=== PATIENT | male | born 1975 | race Caucasian/White ===

== ENCOUNTER 2016-05-16 22:34 | Emergency (ER) | payer SELFPAY ==
[~2016-05-16] VITALS: Ht 162.6 cm; Wt 57.9 kg
[~2016-05-16 22:34] MED LIST: BACT800T5 PO; CEPH-460 PO
[2016-05-16 22:47] VITALS: BP 124/88; PULSE 97; RESP 22; TEMP 98.7; O2SAT 95
[2016-05-17 00:02] VITALS: BP 142/78; PULSE 88; RESP 18; TEMP 97.9; O2SAT 99
[2016-05-17] MEDS ORDERED: LIDOCAINE 1%/EPINEPHrine 1:100,000 SOLN 20 ML VIAL INFIL ONE (00:15)
[2016-05-17] MEDS ORDERED: BACT800T5 PO (00:19)
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
[2016-05-17 00:58] VITALS: BP 152/95
== END 2016-05-17 01:00 | disposition home or self-care (01) ==
LOC: PHED 22:34
DX: L02.413 Cutaneous abscess of right upper limb (principal)
CPT/HCPCS: 10061

== ENCOUNTER 2016-07-05 10:42 | Emergency (ER) | payer OTHER ==
[~2016-07-05] VITALS: Ht 162.6 cm; Wt 59.1 kg
[~2016-07-05 10:42] MED LIST changes: -CEPH-460 PO
[2016-07-05 10:56] VITALS: BP 142/99; PULSE 82; RESP 17; TEMP 98.3; O2SAT 99
[2016-07-05] MEDS ORDERED: MOTR200T4 PO (11:13)
[2016-07-05] MEDS ORDERED: ORPHENADRINE INJ 60 MG/2 ML AMP IM ONE (11:30)
[2016-07-05] MEDS ORDERED: KETOROLAC TROMETHAMINE 60 MG/2 ML (IM) VIAL IM ONE (11:30)
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
[2016-07-05] MEDS ORDERED: DICL75TA PO (12:39)
[2016-07-05] MEDS ORDERED: ROBA750T PO (12:39)
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
== END 2016-07-05 14:43 | disposition home or self-care (01) ==
LOC: PHEFT 10:42
DX: T14.8 Other injury of unspecified body region (principal); N20.0 Calculus of kidney; F17.210 Nicotine dependence, cigarettes, uncomplicated; F11.10 Opioid abuse, uncomplicated; V49.50XA Passenger injured in collision with unspecified motor vehicles in traffic accident, initial encounter; Y93.9 Activity, unspecified; Y92.9 Unspecified place or not applicable; Y99.9 Unspecified external cause status
CPT/HCPCS: 70450; 72125; 72128; 96372; 99283; J1885; J2360

== ENCOUNTER 2016-07-07 21:30 | Emergency (ER) | payer SELFPAY ==
[~2016-07-07] VITALS: Ht 162.6 cm; Wt 61.5 kg
[~2016-07-07 21:30] MED LIST changes: -BACT800T5 PO; +DICL75TA PO; +MOTR200T4 PO; +ROBA750T PO
[2016-07-07 21:34] VITALS: BP 108/80; PULSE 99; RESP 16; TEMP 98.2; O2SAT 100
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
[2016-07-07] MEDS ORDERED: predniSONE 20 MG TAB PO ONE (22:00)
[2016-07-07] MEDS ORDERED: GABA100C4 PO (22:06)
[2016-07-07] MEDS ORDERED: MAXI5O EACH EYE (22:06)
[2016-07-07] MEDS ORDERED: PRED20 PO (22:06)
== END 2016-07-07 22:35 | disposition home or self-care (01) ==
LOC: PHEFT 21:30
DX: R20.2 Paresthesia of skin (principal); T15.02XA Foreign body in cornea, left eye, initial encounter; X58.XXXA Exposure to other specified factors, initial encounter; Y93.89 Activity, other specified; Y92.89 Other specified places as the place of occurrence of the external cause; Y99.8 Other external cause status; V89.2XXD Person injured in unspecified motor-vehicle accident, traffic, subsequent encounter
CPT/HCPCS: 65205; 99283; J7512

== ENCOUNTER 2016-10-09 20:57 | Inpatient (IN) | payer SELFPAY ==
[~2016-10-09] VITALS: Ht 162.6 cm; Wt 58.5 kg
[~2016-10-09 20:57] MED LIST changes: -DICL75TA PO; +GABA100C4 PO; +MAXI5O EACH EYE; +PRED20 PO
[2016-10-09 21:03] VITALS: BP 120/74; PULSE 81; RESP 16; TEMP 99.8; O2SAT 97
[2016-10-09] MEDS ORDERED: SODIUM CHLOR 0.9% 1000 ML INJ 1,000 ML IV SCH (21:13)
[2016-10-09] MEDS ORDERED: SODIUM CHLORIDE 0.9% FLUSH 10 ML FLUSH IV FLUSH PRN ×2 (21:15→23:00)
[2016-10-09] MEDS ORDERED: MORPHINE SULFATE 4 MG/ML INJ IV PUSH ONE (21:15)
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
[2016-10-09 21:35] LABS: BLOOD, URINE SMALL (NEG); GLUCOSE,URINE NEG (NEG); KETONE, URINE NEG (NEG); NITRITE,URINE NEG (NEG)
[2016-10-09 21:35] LABS: AUTOMATED NEUTROPHIL # 8.8 TH/MM3 (1.8-7.7); BASOPHIL # 0.1 TH/MM3 (0-0.2); BASOPHIL % 0.9 % (0.0-2.0); EOSINOPHIL # 0.6 TH/MM3 (0-0.4); EOSINOPHIL % 4.6 % (0.0-4.0); HEMATOCRIT 35.3 % (39.0-51.0); HEMO FLAGS DIFF FINAL; LYMPH % 14.9 % (9.0-44.0); LYMPHOCYTE # 1.8 TH/MM3 (1.0-4.8); MEAN CELL VOLUME 83.3 FL (80.0-100.0); MEAN CORPUSCULAR HEMOGLOBIN 28.6 PG (27.0-34.0); MEAN CORPUSCULAR HGB CONC 34.3 % (32.0-36.0); MONO % 8.4 % (0.0-8.0); NEUT % 71.2 % (16.0-70.0); PLATELET COUNT 236 TH/MM3 (150-450); RED BLOOD COUNT 4.24 MIL/MM3 (4.50-5.90); RED CELL DISTRIBUTION WIDTH 13.1 % (11.6-17.2); WHITE BLOOD COUNT 12.3 TH/MM3 (4.0-11.0)
[2016-10-09 21:41] LABS: MUCUS URINE FEW /lpf (OCC); URINE COLOR YELLOW (YELLW/STRAW)
[2016-10-09 21:42] LABS: SQUAMOUS EPITHELIAL CELL URINE 0-5 /hpf (0-5); WBC, URINE 100-200 /hpf (0-5)
[2016-10-09 21:42] LABS: CHLORIDE 96 MEQ/L (98-107); POTASSIUM 3.8 MEQ/L (3.5-5.1); SODIUM (NA) 128 MEQ/L (136-145)
[2016-10-09 21:43] LABS: COMMENT (UR) CULTURE INDICATED; CULTURE IF INDICATED CULTURE INDICATED
[2016-10-09 21:46] LABS: ANION GAP 6 MEQ/L (5-15); BICARBONATE 26.1 MEQ/L (21.0-32.0); BLOOD UREA NITROGEN 20 MG/DL (7-18)
[2016-10-09 21:49] LABS: ALT (GPT) 29 U/L (12-78); AST (GOT) 25 U/L (15-37); GLOMERULAR FILTRATION RATE 42 ML/MIN (>89)
[2016-10-09 21:50] LABS: TOTAL BILIRUBIN ADULT 0.3 MG/DL (0.2-1.0)
[2016-10-09 21:52] LABS: ALKALINE PHOSPHATASE 80 U/L (45-117)
[2016-10-09] MEDS ORDERED: LEVOFLOXACIN 750 MG PREMIX INJ 150 ML IV ONE (22:00)
[2016-10-09 22:06] VITALS: BP 131/69; PULSE 80; O2SAT 98
--- NOTE | 2016-10-09 22:06 | RADRPT ---
EXAM DATE/TIME: 10/09/2016 21:20 [place] COMPARISON: No previous studies available for comparison. INDICATIONS : Left flank pain for 4 days. Prior history of renal calculi ORAL CONTRAST: No oral contrast ingested. RADIATION DOSE: 5.34 CTDIvol (mGy) MEDICAL HISTORY : Renal calculi. urinary tract infection SURGICAL HISTORY : None. ENCOUNTER: Initial ACUITY: 4 - 6 days PAIN SCALE: 8/10 LOCATION: Left flank TECHNIQUE: Renal colic protocol. Volumetric scanning of the abdomen and pelvis was performed. Using automated exposure control and adjustment of the mA and/or kV according to patient size, radiation dose was kep t as low as reasonably achievable to obtain optimal diagnostic quality images. DICOM format image da ta is available electronically for review and comparison. FINDINGS: Right side: There is a large calcified stone in the upper renal pelvis measuring 12 mm and prominent hydronephros is of the upper pole collecting system, severe. No calcified stones in the lower pole. There is a 2 nd 4 mm calcification layering in the posterior midpole collecting system. The extra renal pelvis is not dilated. Left side: Moderate hydronephrosis and dilation of the right ureter down to the proximal one third where there i s a 13 mm calcified obstructing stone. There is a lower pole amorphous calcified stone measuring 1.5 cm and a 2nd calcification in the lower lateral collecting system measuring 4 mm. Bladder: Nondistended. No calcifications within the lumen. Other: Paucity of abdominal and retroperitoneal fat. No definite dilated loops of bowel. No evidence of fr ee fluid. The visualized lower lungs are clear. Osseous structures are grossly intact. Moderate ca lcification in the central zone of the prostate. CONCLUSION: 1. Moderately severe left-sided hydronephrosis due to a 13 mm obstructing stone in the proximal left ureter. There are 2 other calcified stones in the lower pole of left kidney. 2. Large stone at the junction of the renal pelvis and upper pole renal pelvis on the right side graham uring 13 mm causing segmental obstruction to the upper pole collecting system. There are additional nonobstructing stones in the posterior midpole. Kishore Hendreson MD on October 09, 2016 at 21:59 Board Certified Radiologist. This report was verified electronically.
[2016-10-09] MEDS ORDERED: MORPHINE SULFATE 8 MG/ML INJ IV PUSH ONE (22:30)
[2016-10-09] MEDS ORDERED: ACETAMINOPHEN 325 MG TAB PO PRN (23:00)
[2016-10-09] MEDS ORDERED: ONDANSETRON HCL 4 MG/2 ML VIAL IVP PRN (23:00)
[2016-10-09] MEDS ORDERED: BISACODYL 10 MG SUPP RECTAL PRN (23:00)
[2016-10-09] MEDS ORDERED: SENNOSIDES 8.6 MG TAB PO PRN (23:00)
[2016-10-09] MEDS ORDERED: LACTULOSE SYRUP 20 GM/30 ML CUP PO PRN (23:00)
[2016-10-09] MEDS ORDERED: MAGNESIUM HYDROXIDE SUSP 30 ML CUP PO PRN (23:00)
[2016-10-09 23:06] VITALS: PULSE 81; TEMP 99.8; O2SAT 98
[2016-10-09] MEDS: SODIUM CHLOR 0.9% 1000 ML INJ 1,000 ML IV SCH (23:19)
[2016-10-10 01:20] VITALS: BP 131/81; PULSE 72; RESP 17; TEMP 98.3; O2SAT 95
[2016-10-10] MEDS: MORPHINE SULFATE 4 MG/ML INJ IV PRN ×5 (02:00→21:01)
[2016-10-10 06:19] LABS: AUTOMATED NEUTROPHIL # 8.4 TH/MM3 (1.8-7.7); BASOPHIL # 0.1 TH/MM3 (0-0.2); BASOPHIL % 0.9 % (0.0-2.0); EOSINOPHIL # 0.7 TH/MM3 (0-0.4); EOSINOPHIL % 5.3 % (0.0-4.0); HEMATOCRIT 34.5 % (39.0-51.0); HEMO FLAGS DIFF FINAL; LYMPH % 14.5 % (9.0-44.0); LYMPHOCYTE # 1.8 TH/MM3 (1.0-4.8); MEAN CORPUSCULAR HEMOGLOBIN 28.7 PG (27.0-34.0); MEAN CORPUSCULAR HGB CONC 34.2 % (32.0-36.0); MONO % 12.4 % (0.0-8.0); NEUT % 66.9 % (16.0-70.0); PLATELET COUNT 233 TH/MM3 (150-450); RED BLOOD COUNT 4.11 MIL/MM3 (4.50-5.90); RED CELL DISTRIBUTION WIDTH 13.7 % (11.6-17.2); WHITE BLOOD COUNT 12.6 TH/MM3 (4.0-11.0)
[2016-10-10 06:34] LABS: ANION GAP 9 MEQ/L (5-15); AST (GOT) 21 U/L (15-37); BICARBONATE 22.8 MEQ/L (21.0-32.0); BLOOD UREA NITROGEN 18 MG/DL (7-18); CHLORIDE 101 MEQ/L (98-107); GLOMERULAR FILTRATION RATE 47 ML/MIN (>89); POTASSIUM 3.9 MEQ/L (3.5-5.1); SODIUM (NA) 133 MEQ/L (136-145)
[2016-10-10 06:36] LABS: ALKALINE PHOSPHATASE 68 U/L (45-117); ALT (GPT) 26 U/L (12-78); TOTAL BILIRUBIN ADULT 0.4 MG/DL (0.2-1.0)
[2016-10-10 08:00] VITALS: BP 121/83; PULSE 60; RESP 17; TEMP 97.8; O2SAT 96
[2016-10-10] MEDS: SODIUM CHLOR 0.9% 1000 ML INJ 1,000 ML IV SCH ×2 (08:21→16:58)
[2016-10-10] MEDS: DOCUSATE SODIUM 50 MG/SENNA 8.6 MG TAB PO SCH ×2 (08:21→21:00)
[2016-10-10] MEDS: cefTRIAXone INJ 1,000 MG in SODIUM CHLORIDE 0.9% INJ 100 ML IV SCH (08:21)
[2016-10-10] MEDS: SODIUM CHLORIDE 0.9% FLUSH 10 ML FLUSH IV FLUSH SCH ×2 (08:21→21:04)
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
[2016-10-10] MEDS: REMOVE OLD PATCH T-DERMAL SCH (09:00)
[2016-10-10 12:00] VITALS: BP 117/74; PULSE 53; RESP 17; TEMP 97.6; O2SAT 97
[2016-10-10] MEDS: NICOTINE 21 MG/24 HR PATCH T-DERMAL SCH (12:20)
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
[2016-10-10 16:00] VITALS: BP 126/86; PULSE 75; RESP 18; TEMP 96.1; O2SAT 97
[2016-10-10 20:00] VITALS: BP 135/89; PULSE 73; RESP 18; TEMP 99.7; O2SAT 96
[2016-10-11] VITALS: BP 134/84; PULSE 68; RESP 18; TEMP 98.9; O2SAT 95
[2016-10-11] MEDS: MORPHINE SULFATE 4 MG/ML INJ IV PRN ×4 (00:14→12:29)
[2016-10-11] MEDS ORDERED: diphenhydrAMINE HCL 25 MG CAP PO ONE ×2 (00:30→23:30)
[2016-10-11] MEDS: SODIUM CHLOR 0.9% 1000 ML INJ 1,000 ML IV SCH ×3 (04:51→19:43)
[2016-10-11 08:00] VITALS: BP 135/92; PULSE 59; RESP 17; TEMP 96.6; O2SAT 95
[2016-10-11] MEDS: REMOVE OLD PATCH T-DERMAL SCH (08:50)
[2016-10-11] MEDS: DOCUSATE SODIUM 50 MG/SENNA 8.6 MG TAB PO SCH ×2 (08:50→19:42)
[2016-10-11] MEDS: cefTRIAXone INJ 1,000 MG in SODIUM CHLORIDE 0.9% INJ 100 ML IV SCH (08:50)
[2016-10-11] MEDS: NICOTINE 21 MG/24 HR PATCH T-DERMAL SCH (08:50)
[2016-10-11] MEDS: SODIUM CHLORIDE 0.9% FLUSH 10 ML FLUSH IV FLUSH SCH ×2 (08:50→19:42)
[2016-10-11 12:00] VITALS: BP 128/82; PULSE 69; RESP 18; TEMP 97.1; O2SAT 96
--- NOTE | 2016-10-11 14:08 | HHI.PR ---
Subjective Remarks Follow-up for flank pain Flank pain is still about the same, no change, no fever or chills. No hematuria. Objective Vitals Vital Signs Date Time Temp Pulse Resp B/P Pulse Ox O2 Delivery O2 Flow Rate FiO2 10/11/16 12:00 97.1 69 18 128/82 96 10/11/16 08:00 96.6 59 17 135/92 95 10/11/16 00:00 98.9 68 18 134/84 95 10/10/16 20:00 99.7 73 18 135/89 96 10/10/16 16:00 96.1 75 18 126/86 97 I/O 10/10/16 10/10/16 10/10/16 10/11/16 10/11/16 10/11/16 07:00 15:00 23:00 07:00 15:00 23:00 Intake Total 572 ml 1173 ml 1228 ml 480 ml 903 ml Output Total 675 ml 1425 ml 1250 ml Balance 572 ml 498 ml -197 ml -770 ml 903 ml Intake Oral 240 ml 475 ml 480 ml 480 ml IV Total 332 ml 698 ml 748 ml 903 ml Output Urine Total 675 ml 1425 ml 1250 ml # Voids 3 # Bowel Movements 0 0 0 Result Diagram: 10/10/16 0532 10/10/16 0532 Imaging Last Impressions Abdomen/Pelvis CT 10/09/162112 Signed Impressions: Service Date/Time: Sunday, October 09, 2016 21:20 - CONCLUSION: 1. Moderately severe left-sided hydronephrosis due to a 13 mm obstructing stone in the proximal left ureter. There are 2 other calcified stones in the lower pole of left kidney. 2. Large stone at the junction of the renal pelvis and upper pole renal pelvis on the right side measuring 13 mm causing segmental obstruction to the upper pole collecting system. There are additional nonobstructing stones in the posterior midpole. Kishore Henderson MD Objective Remarks Not in distress Normal rate and regular rhythm, no murmurs gallops or rubs appreciated. Clear to auscultation and symmetric bilaterally, normal respiratory effort. Normal bowel sounds, soft, mild tenderness on palpation of the left lower quadrant, positive for left CVA tenderness. Extremities without clubbing, cyanosis, or edema. AAO x3, no cranial nerve deficits, moves all 4 extremities, no focal neurologic deficits A/P Problem List: (1) Leukocytosis ICD Code: D72.829 Status: Acute (2) Polysubstance abuse ICD Code: F19.10 Status: Acute (3) IVDU (intravenous drug user) ICD Code: F19.90 Status: Acute (4) Febrile illness ICD Code: R50.9 Status: Acute (5) IV drug user ICD Code: F19.90 Status: Acute (6) Hydronephrosis ICD Code: N13.30 Status: Acute (7) Kidney stone on left side ICD Code: N20.0 Status: Acute (8) Renal insufficiency ICD Code: N28.9 Status: Acute (9) Pyelonephritis ICD Code: N12 Status: Acute Assessment and Plan This is a 41-year-old male presenting with left flank pain Pyelonephritis -CT scan of the abdomen showed left-sided hydronephrosis with obstructing stone on the left ureter and lower pole of the left kidney. There is also stone on the right renal pelvis. Urology consulted, for bilateral nephrostomy tube placement tomorrow, and then may discharge if medically stable per urology to follow-up as outpatient. Follow-up urine culture, continue ceftriaxone. Urine culture no growth. Would recheck urinalysis after nephrostomy placement. Continue IVF, recheck CBC Polysubstance abuse-counseled, long-acting morphine only, no IV morphine. Acute renal failure-improving, continue IVF, recheck BMP tomorrow SCDs for DVT prophylaxis: Low risk. Discharge Planning Discharge after nephrostomy tube placement if urinalysis is clear and medically stable. Problem Qualifiers (1) Hydronephrosis: Qualified Code: N13.2 - Hydronephrosis with urinary obstruction due to ureteral calculus Ricki Rowland MD Oct 11, 2016 14:08
[2016-10-11 16:00] VITALS: BP 134/85; PULSE 73; RESP 17; TEMP 98.6; O2SAT 98
[2016-10-11] MEDS: MORPHINE SULFATE 15 MG CONTROLLED RELEASE TAB PO SCH (19:05)
[2016-10-11 19:11] LABS: AUTOMATED NEUTROPHIL # 9.8 TH/MM3 (1.8-7.7); BASOPHIL # 0.1 TH/MM3 (0-0.2); BASOPHIL % 1.1 % (0.0-2.0); EOSINOPHIL # 0.3 TH/MM3 (0-0.4); EOSINOPHIL % 2.6 % (0.0-4.0); HEMATOCRIT 39.7 % (39.0-51.0); HEMO FLAGS DIFF FINAL; LYMPH % 13.2 % (9.0-44.0); LYMPHOCYTE # 1.7 TH/MM3 (1.0-4.8); MEAN CELL VOLUME 84.4 FL (80.0-100.0); MEAN CORPUSCULAR HGB CONC 34.4 % (32.0-36.0); MONO % 8.2 % (0.0-8.0); NEUT % 74.9 % (16.0-70.0); PLATELET COUNT 277 TH/MM3 (150-450); RED BLOOD COUNT 4.71 MIL/MM3 (4.50-5.90); RED CELL DISTRIBUTION WIDTH 13.9 % (11.6-17.2); WHITE BLOOD COUNT 13.1 TH/MM3 (4.0-11.0)
[2016-10-11 19:41] LABS: ANION GAP 9 MEQ/L (5-15); AST (GOT) 35 U/L (15-37); BICARBONATE 24.8 MEQ/L (21.0-32.0); BLOOD UREA NITROGEN 17 MG/DL (7-18); CHLORIDE 101 MEQ/L (98-107); GLOMERULAR FILTRATION RATE 53 ML/MIN (>89); MAGNESIUM 2.2 MG/DL (1.5-2.5); POTASSIUM 4.1 MEQ/L (3.5-5.1); SODIUM (NA) 135 MEQ/L (136-145)
[2016-10-11 19:42] LABS: ALT (GPT) 34 U/L (12-78)
[2016-10-11 19:51] LABS: ALKALINE PHOSPHATASE 134 U/L (45-117); FREE T4 1.24 NG/DL (0.76-1.46); TOTAL BILIRUBIN ADULT 0.2 MG/DL (0.2-1.0)
[2016-10-11 20:00] VITALS: BP 138/89; PULSE 74; RESP 18; TEMP 99.2; O2SAT 96
[2016-10-12] VITALS (8 sets, daily range): BP systolic 112–136; BP diastolic 70–93; PULSE 57–82; RESP 16–20; TEMP 96.9–99.3; O2SAT 95–100
[2016-10-12] MEDS ORDERED: MORPHINE SULFATE 4 MG/ML INJ IV PUSH ONE (01:00)
[2016-10-12] MEDS: MORPHINE SULFATE 15 MG CONTROLLED RELEASE TAB PO SCH ×2 (05:39→17:04)
[2016-10-12] MEDS: SODIUM CHLOR 0.9% 1000 ML INJ 1,000 ML IV SCH ×3 (06:39→22:39)
[2016-10-12 07:19] LABS: AUTOMATED NEUTROPHIL # 9.6 TH/MM3 (1.8-7.7); BASOPHIL # 0.2 TH/MM3 (0-0.2); BASOPHIL % 1.2 % (0.0-2.0); EOSINOPHIL # 0.6 TH/MM3 (0-0.4); EOSINOPHIL % 4.3 % (0.0-4.0); HEMATOCRIT 36.1 % (39.0-51.0); HEMO FLAGS DIFF FINAL; LYMPH % 13.9 % (9.0-44.0); LYMPHOCYTE # 1.9 TH/MM3 (1.0-4.8); MEAN CELL VOLUME 84.3 FL (80.0-100.0); MEAN CORPUSCULAR HEMOGLOBIN 28.9 PG (27.0-34.0); MEAN CORPUSCULAR HGB CONC 34.4 % (32.0-36.0); NEUT % 70.6 % (16.0-70.0); PLATELET COUNT 282 TH/MM3 (150-450); RED BLOOD COUNT 4.29 MIL/MM3 (4.50-5.90); RED CELL DISTRIBUTION WIDTH 13.4 % (11.6-17.2); WHITE BLOOD COUNT 13.6 TH/MM3 (4.0-11.0)
[2016-10-12 07:54] LABS: BICARBONATE 22.6 MEQ/L (21.0-32.0); POTASSIUM 4.1 MEQ/L (3.5-5.1)
[2016-10-12] MEDS: DOCUSATE SODIUM 50 MG/SENNA 8.6 MG TAB PO SCH ×2 (08:32→21:30)
[2016-10-12] MEDS: cefTRIAXone INJ 1,000 MG in SODIUM CHLORIDE 0.9% INJ 100 ML IV SCH (08:32)
[2016-10-12] MEDS: NICOTINE 21 MG/24 HR PATCH T-DERMAL SCH (08:33)
[2016-10-12] MEDS: SODIUM CHLORIDE 0.9% FLUSH 10 ML FLUSH IV FLUSH SCH ×2 (08:33→21:00)
[2016-10-12] MEDS: REMOVE OLD PATCH T-DERMAL SCH (08:33)
[2016-10-12 12:35] LABS: APTT (PATIENT) 33.4 SEC (24.3-30.1); PROTHROMBIN TIME - PATIENT 11.3 SEC (9.8-11.6)
[2016-10-12] MEDS ORDERED: fentaNYL CITRATE 250 MCG/5 ML AMP ONE (14:07)
[2016-10-12] MEDS ORDERED: MIDAZOLAM HCL 2 MG/2 ML VIAL ONE ×2 (14:07→14:50)
--- NOTE | 2016-10-12 14:08 | HHI.PR ---
Subjective Remarks Follow up for left sided flank pain. Mr. Muñoz is on his way to IR for bilateral nephrostomy tube placement. No fever, chills. Objective Vitals Vital Signs Date Time Temp Pulse Resp B/P Pulse Ox O2 Delivery O2 Flow Rate FiO2 10/12/16 11:48 96.9 60 20 129/81 97 10/12/16 08:00 98.0 67 20 125/88 98 10/12/16 05:40 20 10/12/16 04:00 98.5 71 18 131/76 95 10/12/16 01:44 20 10/12/16 00:00 99.3 71 20 136/93 96 10/11/16 20:00 99.2 74 18 138/89 96 10/11/16 16:00 98.6 73 17 134/85 98 I/O 10/11/16 10/11/16 10/11/16 10/12/16 10/12/16 10/12/16 06:59 14:59 22:59 06:59 14:59 22:59 Intake Total 480 ml 1403 ml 1914 ml 586 ml 0 ml Output Total 1250 ml 735 ml 1100 ml 1750 ml 400 ml Balance -770 ml 668 ml 814 ml -1164 ml -400 ml Intake Oral 480 ml 500 ml 480 ml 0 ml 0 ml IV Total 903 ml 1434 ml 586 ml Output Urine Total 1250 ml 735 ml 1100 ml 1750 ml 400 ml # Bowel Movements 0 1 0 0 0 Result Diagram: 10/12/16 0556 10/12/16 0536 Imaging Last Impressions Abdomen/Pelvis CT 10/09/162112 Signed Impressions: Service Date/Time: Sunday, October 09, 2016 21:20 - CONCLUSION: 1. Moderately severe left-sided hydronephrosis due to a 13 mm obstructing stone in the proximal left ureter. There are 2 other calcified stones in the lower pole of left kidney. 2. Large stone at the junction of the renal pelvis and upper pole renal pelvis on the right side measuring 13 mm causing segmental obstruction to the upper pole collecting system. There are additional nonobstructing stones in the posterior midpole. Kishore Henderson MD Objective Remarks GENERAL: AOX3, NAD. SKIN: Warm and dry. HEAD: Normocephalic. EYES: No scleral icterus. No injection or drainage. NECK: Supple, trachea midline. No JVD or lymphadenopathy. CARDIOVASCULAR: Regular rate and rhythm without murmurs, gallops, or rubs. RESPIRATORY: Breath sounds equal bilaterally. No accessory muscle use. GASTROINTESTINAL: Abdomen soft, non-tender, nondistended. Left CVA tenderness. MUSCULOSKELETAL: No cyanosis, or edema. BACK: Nontender without obvious deformity. Procedures Nephrostomy tube placement 10/12/2016. A/P Problem List: (1) Leukocytosis ICD Code: D72.829 Status: Acute (2) Polysubstance abuse ICD Code: F19.10 Status: Acute (3) IVDU (intravenous drug user) ICD Code: F19.90 Status: Acute (4) Febrile illness ICD Code: R50.9 Status: Acute (5) IV drug user ICD Code: F19.90 Status: Acute (6) Hydronephrosis ICD Code: N13.30 Status: Acute (7) Kidney stone on left side ICD Code: N20.0 Status: Acute (8) Renal insufficiency ICD Code: N28.9 Status: Acute (9) Pyelonephritis ICD Code: N12 Status: Acute Assessment and Plan 41yo male with history of IV drug abuse seen in consultation for bilateral nephrolithiasis and hydronephrosis. Patient presented to ED with bilateral flank pain. CT scan identified large 1.3cm left proximal ureteral stone resulting in left hydronephrosis as well as a large right 1.3 cm upper pole stone causing obstruction and hydronephrosis of the upper calyces. Urology evaluated patient and recommended bilateral nephrostomy tube placement by IR. - Bilateral obstructing nephrolithiasis - Moderately severe left sided hydronephrosis - Continue long acting morphine SR 15mg Q12hrs and PRN Oxycodone. - Continue Ceftriaxone 1g Q24hrs. - Continue NS @125cc/hour. - If patient tolerates diet well, we will discharge him home on 10/13/2016 with Urology follow up. - Acute kidney injury - Creatinine trending down. 1.80 --> 1.39. - IV Drug abuse - Tobacco abuse - Continue Nicotine patch. - Patient has been counselled on his IVDU. Full code. SCDs. Problem Qualifiers (1) Hydronephrosis: Qualified Code: N13.2 - Hydronephrosis with urinary obstruction due to ureteral calculus Otto Flores DO Oct 12, 2016 14:08
[2016-10-12] MEDS ORDERED: HYDROmorphone HCL PF 2 MG/ML VIAL ONE (14:50)
[2016-10-12] MEDS ORDERED: IOHEXOL 350 MG/ML 50 ML BTL (for RAD DIAG) ONE (16:00)
--- NOTE | 2016-10-12 17:09 | PD.RAD ---
Post Procedure Progress Note Pre Procedure Diagnosis: (1) Hydronephrosis Post Procedure Diagnosis: (1) Hydronephrosis (2) Kidney stone on left side (3) Leukocytosis Procedure Date: Oct 12, 2016 Supervising Radiologist: Jaswinder Gasca Proceduralist/Assist: Christi Haynes, RT(R), Mala Edouard, RT(R), Deb Rojas RT(R)() Anesthesia: Local, Analgesia, Conscious Sedation Plan of Activity Patient to Unit: [facility] Patient Condition: Good See PACS Report for procedural detail/treatment Drainage Procedure Procedure 1 Imaging Guidance: Fluoroscopy, Ultrasound Side: Bilateral Procedure Type: Nephrostomy Procedure: Placement Czech: 8 Fluid Description: Clear, Red Findings: Bilateral stones. Ureteric on left. Upper pole calyx on right with isolated hydro Jaswinder Gasca MD Oct 12, 2016 17:09
[2016-10-12 17:15] LABS: HEMOGLOBIN A1a 1.2 %; HEMOGLOBIN A1b 1.8 %; HEMOGLOBIN Ao 83.8 %; HEMOGLOBIN LA1C 2.1 %; HEMOGLOBIN P3 4.3 %
[2016-10-13] VITALS: BP 131/92; PULSE 85; RESP 17; TEMP 97.6; O2SAT 97
[2016-10-13] MEDS ORDERED: diphenhydrAMINE HCL 50 MG/ML VIAL IV PUSH ONE (01:00)
[2016-10-13] MEDS ORDERED: MORPHINE SULFATE 4 MG/ML INJ IV PUSH ONE (01:00)
[2016-10-13 04:00] VITALS: BP 128/79; PULSE 66; RESP 17; TEMP 97.6; O2SAT 97
[2016-10-13] MEDS: MORPHINE SULFATE 15 MG CONTROLLED RELEASE TAB PO SCH ×2 (05:12→17:44)
[2016-10-13 08:00] VITALS: BP 113/65; PULSE 79; RESP 20; TEMP 99.3; O2SAT 95
[2016-10-13] MEDS: SODIUM CHLORIDE 0.9% FLUSH 10 ML FLUSH IV FLUSH SCH ×2 (08:17→20:15)
[2016-10-13] MEDS: cefTRIAXone INJ 1,000 MG in SODIUM CHLORIDE 0.9% INJ 100 ML IV SCH (08:17)
[2016-10-13] MEDS: SODIUM CHLOR 0.9% 1000 ML INJ 1,000 ML IV SCH ×3 (08:17→20:16)
--- NOTE | 2016-10-13 08:17 | RADRPT ---
EXAM DATE/TIME: 10/12/2016 14:28 [facility] COMPARISON: No previous studies available for comparison. INDICATIONS : Patient is in need of placement of bilateral nephrostomy tubes due to hydronephrosis. MEDICAL HISTORY : History of bilateral renal calculi, pyelonephritis, renal insufficiency, seizures, asthma, IVDU. SURGICAL HISTORY : History of eye and facial surgery. ENCOUNTER: Initial ACUITY: 2 days PAIN SCORE: 8/10 LOCATION: Left flank FLUORO TIME: 8.4 minutes IMAGE SERIES: 0 SEDATION TIME: 60 minutes CONTRAST: 5 cc Omnipaque (iohexol) 350 MEDICATION(S): 1.) 6 midazolam (Versed) IV 2.) 250 fentanyl (Sublimaze) IV 3.) 2 hydromorphone (Dilaudid) IV DEVICE(S): 1.) 8 Croatian 25cm nephrostomy catheter Expel PROCEDURE : 1. Ultrasound-guided puncture of the kidney. 2. Antegrade percutaneous pyelogram. 3. Percutaneous nephrostomy placement. 4. Conscious sedation with continuous EKG and oximetry monitoring. The risks, benefits and alternatives to the procedure were explained and verbal and written consent w as obtained. The site was prepped in sterile fashion. Full sterile technique was used, including ca p, mask, sterile gloves and gown and a large sterile sheet. Hand hygiene and 2% chlorhexidine and/or betadine/alcohol prep was utilized per protocol for cutaneous antisepsis. The skin and subcutaneous tissues were infiltrated with local anesthetic solution. With ultrasound and fluoroscopic guidance the selected kidney was punctured and a percutaneous antegr mick pyelogram was performed demonstrating a dilated collecting system which seems to be isolated to t he upper pole calyces. CO2 was injected to delineate the dilated upper pole calyx and the system was accessed with an 18 gauge Velasquez blunt needle. Serial dilatation was performed and a prescribed nep hrostomy tube was placed within the renal pelvis and sutured in place. Conscious sedation was performed with the prescribed dosages and duration as above in the presence of an independent trained radiology nurse to assist in the monitoring of the patient. EKG and oximetry remained stable throughout the procedure. The patient tolerated the procedure well and there were n o complications. The patient was sent to post anesthesia recovery in stable condition. CONCLUSION: 1. Uncomplicated nephrostomy tube placement as above. 2. Pelvocaliectasis appears to be isolated to the upper pole calyceal system due to late regional inf undibular stone. Catheter was placed into the upper pole calyx. 3. We will left the patient drain for the next 48 hours. Can consider traversing the partially obstru cting stone at that time if clinically warranted. Jaswinder Gasca MD on October 13, 2016 at 8:13 Board Certified Radiologist. This report was verified electronically.
[2016-10-13] MEDS: DOCUSATE SODIUM 50 MG/SENNA 8.6 MG TAB PO SCH ×2 (08:18→20:15)
[2016-10-13] MEDS: REMOVE OLD PATCH T-DERMAL SCH (08:19)
[2016-10-13] MEDS: NICOTINE 21 MG/24 HR PATCH T-DERMAL SCH (08:19)
[2016-10-13 09:09] LABS: BACTERIA, URINE OCC /hpf; BLOOD, URINE MOD (NEG); COMMENT (UR) CULTURE INDICATED; CULTURE IF INDICATED CULTURE INDICATED; GLUCOSE,URINE NEG (NEG); KETONE, URINE NEG (NEG); NITRITE,URINE NEG (NEG); SQUAMOUS EPITHELIAL CELL URINE <1 /hpf (0-5); URINE COLOR YELLOW (YELLW/STRAW)
--- NOTE | 2016-10-13 09:36 | RADRPT ---
EXAM DATE/TIME: 10/12/2016 14:28 [facility] COMPARISON: No previous studies available for comparison. INDICATIONS : Patient is in need of placement of bilateral nephrostomy tubes due to hydronephrosis. MEDICAL HISTORY : History of bilateral renal calculi, pyelonephritis, renal insufficiency, seizures, asthma, IVDU. SURGICAL HISTORY : History of eye and facial surgery. ENCOUNTER: Initial ACUITY: 2 days PAIN SCORE: 8/10 LOCATION: Left flank FLUORO TIME: 8.4 minutes IMAGE SERIES: 0 SEDATION TIME: 60 minutes CONTRAST: 5 cc Omnipaque (iohexol) 350 MEDICATION(S): 1.) 6 mg midazolam (Versed) IV 2.) 250 mcg fentanyl (Sublimaze) IV 3.) 2 mg hydromorphone (Dilaudid) IV DEVICE(S): 1.) 8 Japanese 25cm nephrostomy catheter Expel PROCEDURE : 1. Ultrasound-guided puncture of the kidney. 2. Antegrade percutaneous pyelogram. 3. Percutaneous nephrostomy placement. 4. Conscious sedation with continuous EKG and oximetry monitoring. The risks, benefits and alternatives to the procedure were explained and verbal and written consent w as obtained. The site was prepped in sterile fashion. Full sterile technique was used, including ca p, mask, sterile gloves and gown and a large sterile sheet. Hand hygiene and 2% chlorhexidine and/or betadine/alcohol prep was utilized per protocol for cutaneous antisepsis. The skin and subcutaneous tissues were infiltrated with local anesthetic solution. With ultrasound and fluoroscopic guidance the selected kidney was punctured and a percutaneous antegr mick pyelogram was performed demonstrating a dilated collecting system. CO2 was injected to delineate an upper pole posterior calyx. This calyx was accessed with an 18 gauge Velasquez blunt needle under [facility] fluoroscopic guidance. Serial dilatation was performed and a prescribed nephrostomy tube was pl aced within the renal pelvis and sutured in place. Conscious sedation was performed with the prescribed dosages and duration as above in the presence of an independent trained radiology nurse to assist in the monitoring of the patient. EKG and oximetry remained stable throughout the procedure. The patient tolerated the procedure well and there were n o complications. The patient was sent to post anesthesia recovery in stable condition. CONCLUSION: Uncomplicated nephrostomy tube placement as above. We will let the patient drain for the next 48 hour s and can convert to a nephroureteral tube at that time if clinically warranted. Jaswinder Gasca MD on October 13, 2016 at 8:11 Board Certified Radiologist. This report was verified electronically.
[2016-10-13 12:00] VITALS: BP 129/83; PULSE 74; RESP 19; TEMP 98.2; O2SAT 97
--- NOTE | 2016-10-13 13:39 | HHI.PR ---
Subjective Remarks Follow up for left sided flank pain. Mr. Muñoz is doing well. No fever, chills. However, he complains of significant pain. He underwent bilateral nephrostomy tube placement on 10/12/2016 by IR. Objective Vitals Vital Signs Date Time Temp Pulse Resp B/P Pulse Ox O2 Delivery O2 Flow Rate FiO2 10/13/16 12:00 98.2 74 19 129/83 97 10/13/16 08:00 99.3 79 20 113/65 95 10/13/16 04:00 97.6 66 17 128/79 97 10/13/16 01:11 20 10/13/16 00:00 97.6 85 17 131/92 97 10/12/16 23:48 18 10/12/16 20:00 98.7 82 17 127/72 98 10/12/16 16:30 70 18 112/70 99 10/12/16 16:00 73 18 121/84 100 10/12/16 15:45 98.0 57 16 136/89 99 I/O 10/12/16 10/12/16 10/12/16 10/13/16 10/13/16 10/13/16 07:00 15:00 23:00 07:00 15:00 23:00 Intake Total 586 ml 656 ml 240 ml 785 ml 437 ml Output Total 1750 ml 400 ml 400 ml 1150 ml 1080 ml Balance -1164 ml 256 ml -160 ml -365 ml -643 ml Intake Oral 0 ml 0 ml 240 ml 240 ml 120 ml IV Total 586 ml 656 ml 545 ml 317 ml Output Urine Total 1750 ml 400 ml 500 ml 200 ml Drainage Total 400 ml 650 ml 880 ml # Voids 3 # Bowel Movements 0 0 3 Result Diagram: 10/12/16 0556 10/12/16 0536 Imaging Last Impressions Nephrostomy 10/12/16 0000 Signed Impressions: Service Date/Time: Wednesday, October 12, 2016 14:28 - CONCLUSION: Uncomplicated nephrostomy tube placement as above. We will let the patient drain for the next 48 hours and can convert to a nephroureteral tube at that time if clinically warranted. Jaswinder Gasca MD Abdomen/Pelvis CT 10/09/163 Signed Impressions: Service Date/Time: Sunday, October 09, 2016 21:20 - CONCLUSION: 1. Moderately severe left-sided hydronephrosis due to a 13 mm obstructing stone in the proximal left ureter. There are 2 other calcified stones in the lower pole of left kidney. 2. Large stone at the junction of the renal pelvis and upper pole renal pelvis on the right side measuring 13 mm causing segmental obstruction to the upper pole collecting system. There are additional nonobstructing stones in the posterior midpole. Kishore Henderson MD Objective Remarks GENERAL: AOX3, NAD. SKIN: Warm and dry. HEAD: Normocephalic. EYES: No scleral icterus. No injection or drainage. NECK: Supple, trachea midline. No JVD or lymphadenopathy. CARDIOVASCULAR: Regular rate and rhythm without murmurs, gallops, or rubs. RESPIRATORY: Breath sounds equal bilaterally. No accessory muscle use. GASTROINTESTINAL: Abdomen soft, non-tender, nondistended. Left CVA tenderness. MUSCULOSKELETAL: No cyanosis, or edema. BACK: Nontender without obvious deformity. Procedures Nephrostomy tube placement 10/12/2016. A/P Problem List: (1) Leukocytosis ICD Code: D72.829 Status: Acute (2) Polysubstance abuse ICD Code: F19.10 Status: Acute (3) IVDU (intravenous drug user) ICD Code: F19.90 Status: Acute (4) Febrile illness ICD Code: R50.9 Status: Acute (5) IV drug user ICD Code: F19.90 Status: Acute (6) Hydronephrosis ICD Code: N13.30 Status: Acute (7) Kidney stone on left side ICD Code: N20.0 Status: Acute (8) Renal insufficiency ICD Code: N28.9 Status: Acute (9) Pyelonephritis ICD Code: N12 Status: Acute Assessment and Plan 41yo male with history of IV drug abuse seen in consultation for bilateral nephrolithiasis and hydronephrosis. Patient presented to ED with bilateral flank pain. CT scan identified large 1.3cm left proximal ureteral stone resulting in left hydronephrosis as well as a large right 1.3 cm upper pole stone causing obstruction and hydronephrosis of the upper calyces. Urology evaluated patient and recommended bilateral nephrostomy tube placement by IR. - Bilateral obstructing nephrolithiasis - Moderately severe left sided hydronephrosis - Continue long acting morphine SR 15mg Q12hrs and PRN Oxycodone. - Continue Ceftriaxone 1g Q24hrs. - Continue NS @125cc/hour. - s/p bilateral nephrostomy tube placement. IR recommends draining for 48 hours then possibly nephroureteral tube placement. - Acute kidney injury - Creatinine trending down. 1.80 --> 1.39. - IV Drug abuse - Tobacco abuse - Continue Nicotine patch. - Patient has been counselled on his IV drug habits. Full code. SCDs. Discussed with Urology. Problem Qualifiers (1) Hydronephrosis: Qualified Code: N13.2 - Hydronephrosis with urinary obstruction due to ureteral calculus Otto Flores DO Oct 13, 2016 13:39
[2016-10-13 16:00] VITALS: BP 134/85; PULSE 76; RESP 20; TEMP 99.2; O2SAT 97
[2016-10-13 20:00] VITALS: BP 119/71; PULSE 82; RESP 18; TEMP 99.8; O2SAT 98
[2016-10-14] VITALS: BP 120/75; PULSE 76; RESP 18; TEMP 99.6; O2SAT 95
[2016-10-14] MEDS ORDERED: diphenhydrAMINE HCL 25 MG CAP PO ONE (01:15)
[2016-10-14] MEDS: MORPHINE SULFATE 15 MG CONTROLLED RELEASE TAB PO SCH ×2 (05:32→18:24)
[2016-10-14] MEDS: SODIUM CHLOR 0.9% 1000 ML INJ 1,000 ML IV SCH ×3 (05:32→22:39)
[2016-10-14 07:25] LABS: AUTOMATED NEUTROPHIL # 9.1 TH/MM3 (1.8-7.7); BASOPHIL # 0.1 TH/MM3 (0-0.2); EOSINOPHIL # 0.8 TH/MM3 (0-0.4); EOSINOPHIL % 5.5 % (0.0-4.0); HEMATOCRIT 37.6 % (39.0-51.0); HEMO FLAGS DIFF FINAL; LYMPH % 17.6 % (9.0-44.0); LYMPHOCYTE # 2.5 TH/MM3 (1.0-4.8); MEAN CELL VOLUME 85.6 FL (80.0-100.0); MEAN CORPUSCULAR HEMOGLOBIN 28.1 PG (27.0-34.0); MEAN CORPUSCULAR HGB CONC 32.8 % (32.0-36.0); MONO % 10.4 % (0.0-8.0); NEUT % 65.5 % (16.0-70.0); PLATELET COUNT 313 TH/MM3 (150-450); RED BLOOD COUNT 4.39 MIL/MM3 (4.50-5.90); RED CELL DISTRIBUTION WIDTH 13.7 % (11.6-17.2); WHITE BLOOD COUNT 13.9 TH/MM3 (4.0-11.0)
[2016-10-14 07:29] LABS: BICARBONATE 24.9 MEQ/L (21.0-32.0); POTASSIUM 4.1 MEQ/L (3.5-5.1)
[2016-10-14 08:00] VITALS: BP 120/72; PULSE 60; RESP 17; TEMP 98; O2SAT 95
[2016-10-14] MEDS: NICOTINE 21 MG/24 HR PATCH T-DERMAL SCH (09:00)
[2016-10-14] MEDS: SODIUM CHLORIDE 0.9% FLUSH 10 ML FLUSH IV FLUSH SCH ×2 (09:00→21:00)
[2016-10-14] MEDS: DOCUSATE SODIUM 50 MG/SENNA 8.6 MG TAB PO SCH ×2 (09:00→23:03)
[2016-10-14] MEDS: REMOVE OLD PATCH T-DERMAL SCH (09:00)
[2016-10-14] MEDS: cefTRIAXone INJ 1,000 MG in SODIUM CHLORIDE 0.9% INJ 100 ML IV SCH (09:48)
--- NOTE | 2016-10-14 11:14 | HHI.PR ---
Subjective Remarks Follow up for left sided flank pain, bilateral hydronephrosis. Patient is currently resting well, no fever, chills. Feels hungry. Objective Vitals Vital Signs Date Time Temp Pulse Resp B/P Pulse Ox O2 Delivery O2 Flow Rate FiO2 10/14/16 08:00 98.0 60 17 120/72 95 10/14/16 00:00 99.6 76 18 120/75 95 10/13/16 20:00 99.8 82 18 119/71 98 10/13/16 16:00 99.2 76 20 134/85 97 10/13/16 12:00 98.2 74 19 129/83 97 I/O 10/13/16 10/13/16 10/13/16 10/14/16 10/14/16 10/14/16 07:00 15:00 23:00 07:00 15:00 23:00 Intake Total 785 ml 1815 ml 375 ml 700 ml Output Total 1150 ml 2605 ml 1250 ml 1200 ml Balance -365 ml -790 ml -875 ml -500 ml Intake Oral 240 ml 880 ml IV Total 545 ml 935 ml 375 ml 700 ml Output Urine Total 500 ml 1050 ml 800 ml Drainage Total 650 ml 1555 ml 450 ml 1200 ml # Bowel Movements 1 Result Diagram: 10/14/16 0541 10/14/16 0541 Imaging Last Impressions Nephrostomy 10/12/16 0000 Signed Impressions: Service Date/Time: Wednesday, October 12, 2016 14:28 - CONCLUSION: Uncomplicated nephrostomy tube placement as above. We will let the patient drain for the next 48 hours and can convert to a nephroureteral tube at that time if clinically warranted. Jaswinder Gasca MD Abdomen/Pelvis CT 10/09/162112 Signed Impressions: Service Date/Time: Sunday, October 09, 2016 21:20 - CONCLUSION: 1. Moderately severe left-sided hydronephrosis due to a 13 mm obstructing stone in the proximal left ureter. There are 2 other calcified stones in the lower pole of left kidney. 2. Large stone at the junction of the renal pelvis and upper pole renal pelvis on the right side measuring 13 mm causing segmental obstruction to the upper pole collecting system. There are additional nonobstructing stones in the posterior midpole. Kishore Henderson MD Objective Remarks GENERAL: AOX3, NAD. SKIN: Warm and dry. HEAD: Normocephalic. EYES: No scleral icterus. No injection or drainage. NECK: Supple, trachea midline. No JVD or lymphadenopathy. CARDIOVASCULAR: Regular rate and rhythm without murmurs, gallops, or rubs. RESPIRATORY: Breath sounds equal bilaterally. No accessory muscle use. GASTROINTESTINAL: Abdomen soft, non-tender, nondistended. Left CVA tenderness. MUSCULOSKELETAL: No cyanosis, or edema. BACK: Nontender without obvious deformity. Procedures Nephrostomy tube placement 10/12/2016. A/P Problem List: (1) Leukocytosis ICD Code: D72.829 Status: Acute (2) Polysubstance abuse ICD Code: F19.10 Status: Acute (3) IVDU (intravenous drug user) ICD Code: F19.90 Status: Acute (4) Febrile illness ICD Code: R50.9 Status: Acute (5) IV drug user ICD Code: F19.90 Status: Acute (6) Hydronephrosis ICD Code: N13.30 Status: Acute (7) Kidney stone on left side ICD Code: N20.0 Status: Acute (8) Renal insufficiency ICD Code: N28.9 Status: Acute (9) Pyelonephritis ICD Code: N12 Status: Acute Assessment and Plan 41yo male with history of IV drug abuse seen in consultation for bilateral nephrolithiasis and hydronephrosis. Patient presented to ED with bilateral flank pain. CT scan identified large 1.3cm left proximal ureteral stone resulting in left hydronephrosis as well as a large right 1.3 cm upper pole stone causing obstruction and hydronephrosis of the upper calyces. Urology evaluated patient and recommended bilateral nephrostomy tube placement by IR. - Bilateral obstructing nephrolithiasis - Moderately severe left sided hydronephrosis - Continue long acting morphine SR 15mg Q12hrs and PRN Oxycodone. - Continue Ceftriaxone 1g Q24hrs. - Continue NS @125cc/hour. - s/p bilateral nephrostomy tube placement. IR performed nephrostomy tube change today. - Likely discharge in the AM. - Acute kidney injury - Creatinine trending down. 1.80 --> 1.39 --> 1.28. - IV Drug abuse - Tobacco abuse - Continue Nicotine patch. - Patient has been counselled on his IV drug habits. - Discussed at length on 10/14/2016 regarding IV drug use. Patient has children and he is motivated to quit illicit drug abuse for the sake of his children. Full code. SCDs. Problem Qualifiers (1) Hydronephrosis: Qualified Code: N13.2 - Hydronephrosis with urinary obstruction due to ureteral calculus Otto Flores DO Oct 14, 2016 11:14
[2016-10-14 12:00] VITALS: BP 116/72; PULSE 63; RESP 18; TEMP 97.4; O2SAT 98
--- NOTE | 2016-10-14 15:22 | PD.RAD ---
Post Procedure Progress Note Pre Procedure Diagnosis: (1) Calculus of both kidneys (2) Hydronephrosis Post Procedure Diagnosis: (1) Calculus of both kidneys (2) Hydronephrosis Procedure Date: Oct 14, 2016 Supervising Radiologist: Jaswinder Gasca Proceduralist/Assist: Isela Donovan, RT(R)(CV), Ruy Angela RT(R) Anesthesia: General Plan of Activity Patient to Unit: PACU Patient Condition: Good See PACS Report for procedural detail/treatment Drainage Procedure Procedure 1 Imaging Guidance: Fluoroscopy Side: Bilateral Procedure Type: Nephrostomy, Ureteral Stent Procedure: Conversion Drainage: [place] drainage Fluid Description: Yellow, Red Findings: Left proximal ureteric stone and right upper pole infundibular stone. [facility]YCHOLOG[facility] of both stone regions to 6mm to facilitate conversion of PCN to PCNU bilaterally. Would leave tubes to gravity drainage for next 48 hours then can cap (will drain internally). Attempted to call Dr. Logan's office multiple times to determine surgical plan for patient. Unable to contact. OK to D/C home from IR standpoint by tomorrow morning. Plan for stone extraction should be provided by urology/Dr. Logan. Jaswinder Gasca MD Oct 14, 2016 15:22
[2016-10-14] MEDS ORDERED: IOHEXOL 350 MG/ML 50 ML BTL (for RAD DIAG) ONE (15:26)
[2016-10-14] MEDS ORDERED: DO NOT ADM ANY ANTICOAGULANT DRUGS PRN (15:30)
[2016-10-14] MEDS ORDERED: *MEPERIDINE 25 MG INJ VIAL PERIprocedural Use ONLY ONE (15:33)
[2016-10-14] MEDS ORDERED: fentaNYL CITRATE 250 MCG/5 ML AMP ONE ×2 (15:39)
[2016-10-14] MEDS ORDERED: MIDAZOLAM HCL 2 MG/2 ML VIAL ONE (15:39)
[2016-10-14 16:44] VITALS: BP 119/76; PULSE 75; RESP 19; TEMP 97.5; O2SAT 95
[2016-10-14 20:00] VITALS: BP 134/80; PULSE 67; RESP 20; TEMP 98.2; O2SAT 98
[2016-10-15] VITALS: BP 127/79; PULSE 81; RESP 20; TEMP 98.3; O2SAT 95
[2016-10-15] MEDS ORDERED: diphenhydrAMINE HCL 50 MG CAP PO ONE (00:45)
[2016-10-15 04:00] VITALS: BP 127/76; PULSE 70; RESP 20; TEMP 98.8; O2SAT 95
[2016-10-15] MEDS: SODIUM CHLOR 0.9% 1000 ML INJ 1,000 ML IV SCH ×2 (04:39→22:22)
[2016-10-15] MEDS: MORPHINE SULFATE 15 MG CONTROLLED RELEASE TAB PO SCH ×2 (04:41→17:46)
[2016-10-15 08:00] VITALS: BP 135/87; PULSE 54; RESP 18; TEMP 96.1; O2SAT 96
[2016-10-15] MEDS: cefTRIAXone INJ 1,000 MG in SODIUM CHLORIDE 0.9% INJ 100 ML IV SCH (09:00)
[2016-10-15] MEDS: REMOVE OLD PATCH T-DERMAL SCH (09:00)
[2016-10-15] MEDS: SODIUM CHLORIDE 0.9% FLUSH 10 ML FLUSH IV FLUSH SCH ×2 (09:00→22:21)
[2016-10-15] MEDS: DOCUSATE SODIUM 50 MG/SENNA 8.6 MG TAB PO SCH ×2 (09:00→22:21)
[2016-10-15] MEDS: NICOTINE 21 MG/24 HR PATCH T-DERMAL SCH (09:00)
--- NOTE | 2016-10-15 09:23 | HHI.PR ---
Subjective Remarks Follow up for left sided flank pain, bilateral hydronephrosis. Patient is doing well. Appears to be drowsy. No fever, chills. Objective Vitals Vital Signs Date Time Temp Pulse Resp B/P Pulse Ox O2 Delivery O2 Flow Rate FiO2 10/15/16 08:00 96.1 54 18 135/87 96 10/15/16 04:00 98.8 70 20 127/76 95 10/15/16 00:00 98.3 81 20 127/79 95 10/14/16 20:00 98.2 67 20 134/80 98 10/14/16 16:44 97.5 75 19 119/76 95 10/14/16 16:15 97.6 52 16 120/76 96 Room Air 10/14/16 16:00 57 16 122/75 96 Room Air 10/14/16 15:45 78 14 131/84 100 Room Air 10/14/16 15:30 97.4 66 14 141/87 100 Room Air 10/14/16 12:00 97.4 63 18 116/72 98 I/O 10/14/16 10/14/16 10/14/16 10/15/16 10/15/16 10/15/16 06:59 14:59 22:59 06:59 14:59 22:59 Intake Total 700 ml 0 ml 800 ml 899 ml Output Total 1200 ml 425 ml 350 ml 2000 ml Balance -500 ml -425 ml 450 ml -1101 ml Intake Oral 0 ml 240 ml IV Total 700 ml 450 ml 659 ml Other 350 ml Output Urine Total 425 ml Drainage Total 1200 ml 350 ml 2000 ml # Voids 2 Result Diagram: 10/14/16 0541 10/14/16 0541 Imaging Last Impressions Nephrostomy 10/12/16 0000 Signed Impressions: Service Date/Time: Wednesday, October 12, 2016 14:28 - CONCLUSION: Uncomplicated nephrostomy tube placement as above. We will let the patient drain for the next 48 hours and can convert to a nephroureteral tube at that time if clinically warranted. Jaswinder Gasca MD Abdomen/Pelvis CT 10/09/161 Signed Impressions: Service Date/Time: Sunday, October 09, 2016 21:20 - CONCLUSION: 1. Moderately severe left-sided hydronephrosis due to a 13 mm obstructing stone in the proximal left ureter. There are 2 other calcified stones in the lower pole of left kidney. 2. Large stone at the junction of the renal pelvis and upper pole renal pelvis on the right side measuring 13 mm causing segmental obstruction to the upper pole collecting system. There are additional nonobstructing stones in the posterior midpole. Kishore Henderson MD Objective Remarks GENERAL: AOX3, NAD. SKIN: Warm and dry. HEAD: Normocephalic. EYES: No scleral icterus. No injection or drainage. NECK: Supple, trachea midline. No JVD or lymphadenopathy. CARDIOVASCULAR: Regular rate and rhythm without murmurs, gallops, or rubs. RESPIRATORY: Breath sounds equal bilaterally. No accessory muscle use. GASTROINTESTINAL: Abdomen soft, non-tender, nondistended. Left CVA tenderness. Nephrostomy tube/bag in place. MUSCULOSKELETAL: No cyanosis, or edema. BACK: Nontender without obvious deformity. Procedures Nephrostomy tube placement 10/12/2016. A/P Problem List: (1) Leukocytosis ICD Code: D72.829 Status: Acute (2) Polysubstance abuse ICD Code: F19.10 Status: Acute (3) IVDU (intravenous drug user) ICD Code: F19.90 Status: Acute (4) Febrile illness ICD Code: R50.9 Status: Acute (5) IV drug user ICD Code: F19.90 Status: Acute (6) Hydronephrosis ICD Code: N13.30 Status: Acute (7) Kidney stone on left side ICD Code: N20.0 Status: Acute (8) Renal insufficiency ICD Code: N28.9 Status: Acute (9) Pyelonephritis ICD Code: N12 Status: Acute Assessment and Plan 41yo male with history of IV drug abuse seen in consultation for bilateral nephrolithiasis and hydronephrosis. Patient presented to ED with bilateral flank pain. CT scan identified large 1.3cm left proximal ureteral stone resulting in left hydronephrosis as well as a large right 1.3 cm upper pole stone causing obstruction and hydronephrosis of the upper calyces. Urology evaluated patient and recommended bilateral nephrostomy tube placement by IR. - Bilateral obstructing nephrolithiasis - Moderately severe left sided hydronephrosis - Continue long acting morphine SR 15mg Q12hrs and PRN Oxycodone. - Continue Ceftriaxone 1g Q24hrs. - Continue NS @125cc/hour. - s/p bilateral nephrostomy tube placement. IR performed nephrostomy tube change today. Bags in place. - Discussed with Urology. Probably we can cap the tubes today or tomorrow morning and discharge patient. Pt needs to follow up with [facility]. - Acute kidney injury - Creatinine trending down. 1.80 --> 1.39 --> 1.28. - CBC, BMP in the AM. - IV Drug abuse - Tobacco abuse - Continue Nicotine patch. - Patient has been counselled on his IV drug habits. - Discussed at length on 10/14/2016 regarding IV drug use. Patient has children and he is motivated to quit illicit drug abuse for the sake of his children. Full code. SCDs. Problem Qualifiers (1) Hydronephrosis: Qualified Code: N13.2 - Hydronephrosis with urinary obstruction due to ureteral calculus Otto Flores DO Oct 15, 2016 9:22 am
[2016-10-15 12:00] VITALS: BP 109/69; PULSE 61; RESP 17; TEMP 97.8; O2SAT 95
--- NOTE | 2016-10-15 15:35 | RADRPT ---
EXAM DATE/TIME: 10/14/2016 13:16 [facility] COMPARISON: No previous studies available for comparison. INDICATIONS : Patient with bilateral neph tubes to be exchanged for nephrouerteral tubes. MEDICAL HISTORY : 1.Bilateral renal calculi 2. pyelonephritis 3. renal insufficiency 4. seizures 5. asthma 6. IVDU SURGICAL HISTORY : 1. eye and facial surgery 2. bilateral neph tubes ENCOUNTER: Subsequent ACUITY: 4 - 6 days PAIN SCORE: 2/10 LOCATION: Bilateral flank FLUORO TIME: 15.9 minutes IMAGE SERIES: 10 CONTRAST: 60 cc Omnipaque (iohexol) 350 DEVICE(S): 1.) 8 [place] x24 nephroureteral stent Anesthesia and pain control was provided by the Anesthesia department. PROCEDURE : 1. 6 mm balloon angioplasty, proximal left ureter. 2. Antegrade percutaneous pyelogram. 3. Percutaneous nephroureteral stent placement. 4. Conscious sedation with continuous EKG and oximetry monitoring. The risks, benefits and alternatives to the procedure were explained and verbal and written consent w as obtained. The site was prepped in sterile fashion. Full sterile technique was used, including ca p, mask, sterile gloves and gown and a large sterile sheet. Hand hygiene and 2% chlorhexidine and/or betadine/alcohol prep was utilized per protocol for cutaneous antisepsis. The skin and subcutaneous tissues were infiltrated with local anesthetic solution. With direct fluoroscopic visualization, the existing left-sided nephrostomy tube was injected with po sitive contrast delineating the large, partially obstructing stone in the proximal left ureter. A 6 F rench sheath was advanced over the wire and a 6 mm balloon was advanced next to the stone in the prox imal ureter. 6 mm balloon angioplasty was performed to facilitate nephroureteral tube placement. Conscious sedation was performed with the prescribed dosages and duration as above in the presence of an independent trained radiology nurse to assist in the monitoring of the patient. EKG and oximetry remained stable throughout the procedure. The patient tolerated the procedure well and there were n o complications. The patient was sent to post anesthesia recovery in stable condition. CONCLUSION: 1. Uncomplicated nephroureteral stent placement as above. The PCNU was placed utilizing the previous nephrostomy tube access from 2 days earlier. 2. 6 mm balloon angioplasty in the proximal left ureter to facilitate PCNU placement past the partial ly obstructing ureteric stone Jaswinder Gasca MD on October 15, 2016 at 15:27 Board Certified Radiologist. This report was verified electronically.
--- NOTE | 2016-10-15 15:51 | RADRPT ---
EXAM DATE/TIME: 10/14/2016 13:16 [facility] COMPARISON: No previous studies available for comparison. INDICATIONS : Patient with kidney stones and hydronephrosis. MEDICAL HISTORY : 1. Bilateral renal calculi. 2. Pyelonephritis 3. renal insufficiency 4. seizures 5. asthma 6. IVDU SURGICAL HISTORY : 1. Eye and facial surgery 2. bilateral neph tubes ENCOUNTER: Subsequent ACUITY: 4 - 6 days PAIN SCORE: 2/10 LOCATION: Bilateral flank FLUORO TIME: 15.9 minutes IMAGE SERIES: 10 CONTRAST: 60 cc Omnipaque (iohexol) 350 DEVICE(S): 1.) 8 Citizen Of [place] 24 cm nephroureteral stent Anesthesia and pain control was provided by the Anesthesia department. PROCEDURE : 1. 6 mm balloon angioplasty, right upper pole infundibulum. 2. Antegrade percutaneous pyelogram. 3. Percutaneous nephroureteral stent placement. 4. Conscious sedation with continuous EKG and oximetry monitoring. The risks, benefits and alternatives to the procedure were explained and verbal and written consent w as obtained. The site was prepped in sterile fashion. Full sterile technique was used, including ca p, mask, sterile gloves and gown and a large sterile sheet. Hand hygiene and 2% chlorhexidine and/or betadine/alcohol prep was utilized per protocol for cutaneous antisepsis. The skin and subcutaneous tissues were infiltrated with local anesthetic solution. Contrast was injected through the existing nephrostomy tube placed 2 days earlier in the dilated uppe r pole calyceal system. This again showed isolated dilation of the upper pole calyx with a prominent stone in the upper pole infundibulum. The existing catheter was accessed with an 035 wire. The wire a nd a hockey-stick catheter were then manipulated past the stone into the renal pelvis and down the ur eter. A 6 Citizen [place] side-port sheath was advanced over the wire to facilitate 6 mm balloon angioplasty i n the infundibulum adjacent to this stone. The prescribed nephroureteral catheter was then advanced o raissa the wire and into the collecting system. Proximal and distal cope loops were formed and the sharita ter locked in position. Conscious sedation was performed with the prescribed dosages and duration as above in the presence of an independent trained radiology nurse to assist in the monitoring of the patient. EKG and oximetry remained stable throughout the procedure. The patient tolerated the procedure well and there were n o complications. The patient was sent to post anesthesia recovery in stable condition. CONCLUSION: 1. 6 mm balloon angioplasty of the upper pole infundibulum adjacent to the partially obstructing ston e. 2. Uncomplicated nephroureteral stent placement as above. Jaswinder Gasca MD on October 15, 2016 at 15:34 Board Certified Radiologist. This report was verified electronically.
[2016-10-15 16:00] VITALS: BP 108/66; PULSE 57; RESP 16; TEMP 97.9; O2SAT 97
--- NOTE | 2016-10-15 18:30 | HHI.PR ---
Subjective Patient symptoms today Bilateral nephrostomy tubes in place, draining well. Patient reports discomfort. no fevers Objective Vital Signs Vital Signs Date Time Temp Pulse Resp B/P Pulse Ox O2 Delivery O2 Flow Rate FiO2 10/15/16 16:00 97.9 57 16 108/66 97 10/15/16 12:00 97.8 61 17 109/69 95 10/15/16 08:00 96.1 54 18 135/87 96 10/15/16 04:00 98.8 70 20 127/76 95 10/15/16 00:00 98.3 81 20 127/79 95 10/14/16 20:00 98.2 67 20 134/80 98 Intake & Output 10/15/16 10/15/16 06:59 18:59 Intake Total 1299 ml 1430 ml Output Total 2000 ml 1225 ml Balance -701 ml 205 ml Intake Oral 240 ml 545 ml IV Total 1059 ml 885 ml Output Urine Total 200 ml Drainage Total 2000 ml 1025 ml # Bowel Movements 1 Result Diagram: 10/14/16 0541 10/14/16 0541 Imaging Last 72 hours Impressions Ureter Stent X-Ray 10/14/16 1524 Signed Impressions: Service Date/Time: Friday, October 14, 2016 13:16 - CONCLUSION: 1. 6 mm balloon angioplasty of the upper pole infundibulum adjacent to the partially obstructing stone. 2. Uncomplicated nephroureteral stent placement as above. Jaswinder Gasca MD Ureter Stent X-Ray 10/14/16 1524 Signed Impressions: Service Date/Time: Friday, October 14, 2016 13:16 - CONCLUSION: 1. Uncomplicated nephroureteral stent placement as above. The PCNU was placed utilizing the previous nephrostomy tube access from 2 days earlier. 2. 6 mm balloon angioplasty in the proximal left ureter to facilitate PCNU placement past the partially obstructing ureteric stone Jaswinder Gasca MD Objective Remarks Bilateral nephrostomy tubes in place, draining light pink to yellow urine NAD, AAOx3 Resp NL Insertion site c/d/i, no drainage Medications and IVs Current Medications Medications (Trade) Dose Ordered Sig/Jessie Route Start Time Stop Time Status Last Admin Ceftriaxone Sodium 1000 mg/ Sodium Chloride 100 ml @ 200 mls/hr Q24H IV 10/10/16 09:00 10/15/16 09:00 (NS 1000 ml Inj) 1,000 ml @ 125 mls/hr Q8H IV 10/09/16 22:47 10/15/16 04:39 (NS Flush) 2 ml UNSCH PRN IV FLUSH 10/09/16 23:00 (NS Flush) 2 ml BID IV FLUSH 10/10/16 09:00 10/12/16 08:33 (Zofran Inj) 4 mg Q6H PRN IVP 10/09/16 23:00 (Tylenol) 650 mg Q6H PRN PO 10/09/16 23:00 (Roxicodone) 5 mg Q4H PRN PO 10/09/16 23:00 10/15/16 12:56 (Ana-Colace) 1 tab BID PO 10/10/16 09:00 10/14/16 23:03 (Milk Of Magnesia Liq) 30 ml Q12H PRN PO 10/09/16 23:00 (Senokot) 17.2 mg Q12H PRN PO 10/09/16 23:00 (Dulcolax Supp) 10 mg DAILY PRN RECTAL 10/09/16 23:00 (Lactulose Liq) 30 ml DAILY PRN PO 10/09/16 23:00 (Habitrol 21 Mg Patch.24 Hr) 1 patch DAILY T-DERMAL 10/10/16 09:00 10/13/16 08:19 Miscellaneous Information 1 DAILY T-DERMAL 10/10/16 09:00 10/13/16 08:19 (Oramorph Sr) 15 mg Q12H PO 10/11/16 18:00 10/15/16 17:46 (Roxicodone) 10 mg Q6H PRN PO 10/15/16 18:00 Assessment and Plan Problem List: (1) Hydronephrosis ICD Code: N13.30 Status: Acute (2) Renal insufficiency ICD Code: N28.9 Status: Acute (3) Kidney stone on left side ICD Code: N20.0 Status: Acute Assessment and Plan -Maintain nephrostomy tubes in place -As these are nephroureteral tubes, they may be capped tomorrow morning at which point he will be clear for discharge -Follow-up with [facility] for definitive stone management -Please call with questions Problem Qualifiers (1) Hydronephrosis: Qualified Code: N13.2 - Hydronephrosis with urinary obstruction due to ureteral calculus Moy Logan MD Oct 15, 2016 18:30
[2016-10-15 20:00] VITALS: BP 149/91; PULSE 71; RESP 18; TEMP 99.3; O2SAT 97
[2016-10-16] VITALS: BP 130/81; PULSE 61; RESP 18; TEMP 97.9; O2SAT 94
[2016-10-16] MEDS ORDERED: diphenhydrAMINE HCL 25 MG CAP PO ONE (01:00)
[2016-10-16] MEDS: MORPHINE SULFATE 15 MG CONTROLLED RELEASE TAB PO SCH (05:15)
[2016-10-16 07:15] LABS: AUTOMATED NEUTROPHIL # 7.3 TH/MM3 (1.8-7.7); BASOPHIL # 0.2 TH/MM3 (0-0.2); BASOPHIL % 1.3 % (0.0-2.0); EOSINOPHIL # 0.7 TH/MM3 (0-0.4); EOSINOPHIL % 5.8 % (0.0-4.0); HEMATOCRIT 36.6 % (39.0-51.0); HEMO FLAGS DIFF FINAL; LYMPH % 18.9 % (9.0-44.0); LYMPHOCYTE # 2.2 TH/MM3 (1.0-4.8); MEAN CELL VOLUME 85.7 FL (80.0-100.0); MEAN CORPUSCULAR HGB CONC 32.7 % (32.0-36.0); MONO % 10.3 % (0.0-8.0); NEUT % 63.7 % (16.0-70.0); PLATELET COUNT 359 TH/MM3 (150-450); RED BLOOD COUNT 4.27 MIL/MM3 (4.50-5.90); RED CELL DISTRIBUTION WIDTH 13.2 % (11.6-17.2); WHITE BLOOD COUNT 11.5 TH/MM3 (4.0-11.0)
[2016-10-16 07:31] LABS: BICARBONATE 24.9 MEQ/L (21.0-32.0); POTASSIUM 4.1 MEQ/L (3.5-5.1)
[2016-10-16 08:00] VITALS: BP 126/84; PULSE 62; RESP 18; TEMP 97.7; O2SAT 96
[2016-10-16] MEDS: SODIUM CHLOR 0.9% 1000 ML INJ 1,000 ML IV SCH (08:20)
[2016-10-16] MEDS: REMOVE OLD PATCH T-DERMAL SCH (08:21)
[2016-10-16] MEDS: NICOTINE 21 MG/24 HR PATCH T-DERMAL SCH (08:21)
[2016-10-16] MEDS: DOCUSATE SODIUM 50 MG/SENNA 8.6 MG TAB PO SCH (08:22)
[2016-10-16] MEDS: cefTRIAXone INJ 1,000 MG in SODIUM CHLORIDE 0.9% INJ 100 ML IV SCH (08:22)
[2016-10-16] MEDS: SODIUM CHLORIDE 0.9% FLUSH 10 ML FLUSH IV FLUSH SCH (08:26)
[2016-10-16] MEDS ORDERED: HYDR-3288 PO (10:25)
--- NOTE | 2016-10-16 10:35 | HHI.DS ---
Discharge Summary Admission Date Oct 09, 2016 at 10:54 pm Discharge Date: Oct 16, 2016 Admitting Diagnosis Kidney stone with hydronephrosis (1) Leukocytosis ICD Code: D72.829 (2) Polysubstance abuse ICD Code: F19.10 Diagnosis: Principal (3) IVDU (intravenous drug user) ICD Code: F19.90 Diagnosis: Principal (4) Febrile illness ICD Code: R50.9 (5) IV drug user ICD Code: F19.90 (6) Hydronephrosis ICD Code: N13.30 Diagnosis: Principal (7) Kidney stone on left side ICD Code: N20.0 (8) Renal insufficiency ICD Code: N28.9 (9) Pyelonephritis ICD Code: N12 Procedures Nephrostomy tube placement 10/12/2016. Brief History - From Admission Patient is a 41-year-old male who presents to emergency with complaints of left sided flank pain. He reports that he has had left sided flank pain for the past 4 days, denies any trauma, reports that pain has been persistent. Patient reports that he does have history of kidney stones in the past, denies any hematuria this time. Patient denies any dysuria, urinary urgency or frequency. Reports that he has been having low-grade fevers over the past 4 days, he has not taken anything for his fever. Patient denies any cough or congestion, denies any chest pain or shortness of breath. Patient does admit to IV drug abuse - last use was a few days ago. Patient has been crushing up pain medications that he gets on the streets and shooting it up too. CBC/BMP: 10/16/16 0610 10/16/16 0610 Significant Findings Laboratory Tests Test 10/14/16 10/16/16 05:41 06:10 White Blood Count 13.9 TH/MM3 11.5 TH/MM3 (4.0-11.0) (4.0-11.0) Red Blood Count 4.39 MIL/MM3 4.27 MIL/MM3 (4.50-5.90) (4.50-5.90) Hemoglobin 12.3 GM/DL 11.9 GM/DL (13.0-17.0) (13.0-17.0) Hematocrit 37.6 % 36.6 % (39.0-51.0) (39.0-51.0) Monocytes (%) (Auto) 10.4 % 10.3 % (0.0-8.0) (0.0-8.0) Eosinophils (%) (Auto) 5.5 % (0.0-4.0) 5.8 % (0.0-4.0) Neutrophils # (Auto) 9.1 TH/MM3 (1.8-7.7) Monocytes # (Auto) 1.4 TH/MM3 1.2 TH/MM3 (0-0.9) (0-0.9) Eosinophils # (Auto) 0.8 TH/MM3 0.7 TH/MM3 (0-0.4) (0-0.4) Sodium Level 133 MEQ/L 133 MEQ/L (136-145) (136-145) Estimat Glomerular Filtration 62 ML/MIN (>89) 70 ML/MIN (>89) Rate Calcium Level 8.3 MG/DL 8.4 MG/DL (8.5-10.1) (8.5-10.1) Imaging Last Impressions Ureter Stent X-Ray 10/14/16 1524 Signed Impressions: Service Date/Time: Friday, October 14, 2016 13:16 - CONCLUSION: 1. 6 mm balloon angioplasty of the upper pole infundibulum adjacent to the partially obstructing stone. 2. Uncomplicated nephroureteral stent placement as above. Jaswinder Gasca MD Nephrostomy 10/12/16 0000 Signed Impressions: Service Date/Time: Wednesday, October 12, 2016 14:28 - CONCLUSION: Uncomplicated nephrostomy tube placement as above. We will let the patient drain for the next 48 hours and can convert to a nephroureteral tube at that time if clinically warranted. Jaswinder Gasca MD Abdomen/Pelvis CT 10/09/16 2113 Signed Impressions: Service Date/Time: Sunday, October 09, 2016 21:20 - CONCLUSION: 1. Moderately severe left-sided hydronephrosis due to a 13 mm obstructing stone in the proximal left ureter. There are 2 other calcified stones in the lower pole of left kidney. 2. Large stone at the junction of the renal pelvis and upper pole renal pelvis on the right side measuring 13 mm causing segmental obstruction to the upper pole collecting system. There are additional nonobstructing stones in the posterior midpole. Kishore Henderson MD PE at Discharge GENERAL: AOX3, NAD. SKIN: Warm and dry. HEAD: Normocephalic. EYES: No scleral icterus. No injection or drainage. NECK: Supple, trachea midline. No JVD or lymphadenopathy. CARDIOVASCULAR: Regular rate and rhythm without murmurs, gallops, or rubs. RESPIRATORY: Breath sounds equal bilaterally. No accessory muscle use. GASTROINTESTINAL: Abdomen soft, non-tender, nondistended. Left CVA tenderness. Nephrostomy tube/bag in place. MUSCULOSKELETAL: No cyanosis, or edema. BACK: Nontender without obvious deformity. Pt update on day of discharge Mr. Muñoz is doing well. Ambulating well. No fever, chills. Tolerating diet well. Hospital Course 41yo male with history of IV drug abuse seen in consultation for bilateral nephrolithiasis and hydronephrosis. Patient presented to ED with bilateral flank pain. CT scan identified large 1.3cm left proximal ureteral stone resulting in left hydronephrosis as well as a large right 1.3 cm upper pole stone causing obstruction and hydronephrosis of the upper calyces. Urology evaluated patient and recommended bilateral nephrostomy tube placement by IR. - Bilateral obstructing nephrolithiasis - Moderately severe left sided hydronephrosis - Continue long acting morphine SR 15mg Q12hrs and PRN Oxycodone. - s/p bilateral nephrostomy tube placement. IR performed nephrostomy tube change - Discussed with Urology. Nephrostomy tubes capped. Pt needs to follow up with [facility]. - Acute kidney injury - Creatinine trending down. 1.80 --> 1.39 --> 1.28 --> 1.15 - IV Drug abuse - Tobacco abuse - Continue Nicotine patch. - Patient has been counselled on his IV drug habits. - Discussed at length on 10/14/2016 regarding IV drug use. Patient has children and he is motivated to quit illicit drug abuse for the sake of his children. - Discussed with patient's mother - she states she will take responsibility for patient's medications, especially pain meds. Full code. SCDs. Pt Condition on Discharge: Good Discharge Disposition: Discharge Home Discharge Time: > 30 minutes Discharge Instructions DIET: Follow Instructions for: As Tolerated, No Restrictions Activities you can perform: Regular-No Restrictions Follow up Referrals: PCP Follow-up - 1 Week Urology - 2 Weeks @ [facility] New Medications: Hydrocodone-Acetaminophen ([place]) 7.5-325 mg Tab 1 TAB PO Q6H PRN PAIN #20 Ref 0 TAB Tamsulosin (Tamsulosin) 0.4 Mg Cap 0.4 MG PO HS Manage Prostate Problems #30 Ref 0 CAP Otto Flores DO Oct 16, 2016 10:35
[2016-10-16] MEDS ORDERED: TAMS0.4C4 PO (12:54)
== END 2016-10-16 13:03 | disposition home or self-care (01) | DRG 694 ==
LOC: PHED 20:57 → PHEDA 22:54 → N07A 10-10 01:30
PROVIDERS: ADMIT Hospitalist; ATTEND Hospitalist
PROC: 0T9130Z Drainage of Left Kidney with Drainage Device, Percutaneous Approach (ICD-10-PCS; principal; 2016-10-13)
PROC: BT1F1ZZ Fluoroscopy of Left Kidney, Ureter and Bladder using Low Osmolar Contrast (ICD-10-PCS; 2016-10-13)
PROC: 0T9030Z Drainage of Right Kidney with Drainage Device, Percutaneous Approach (ICD-10-PCS; 2016-10-13)
PROC: BT1D1ZZ Fluoroscopy of Right Kidney, Ureter and Bladder using Low Osmolar Contrast (ICD-10-PCS; 2016-10-13)
PROC: 0T783DZ Dilation of Bilateral Ureters with Intraluminal Device, Percutaneous Approach (ICD-10-PCS; 2016-10-15)
DX: N13.2 Hydronephrosis with renal and ureteral calculous obstruction (principal); N17.9 Acute kidney failure, unspecified; F19.10 Other psychoactive substance abuse, uncomplicated; N12 Tubulo-interstitial nephritis, not specified as acute or chronic; F17.210 Nicotine dependence, cigarettes, uncomplicated; Z86.14 Personal history of Methicillin resistant Staphylococcus aureus infection
CPT/HCPCS: 50432; 50434; 74176; 76937; 80048; 80053; 81001; 83036; 83735; 84100; 84439; 84443; 85025; 85610; 85730; 87086; 96365; 96375; 96376; 99152; 99153; C1725; C1729; C1769; C1877; C1887; C1894; J0696; J1170; J1200; J1956; J2175; J2250; J2270; J3010; J7030; Q0163; Q9967

== ENCOUNTER 2016-10-26 12:52 | Day surgery (SDC) | payer SELFPAY ==
[~2016-10-26 12:52] MED LIST changes: -GABA100C4 PO; +HYDR-3288 PO; +KETO60IN6 IM; -MAXI5O EACH EYE; -MOTR200T4 PO; -PRED20 PO; -ROBA750T PO; +TAMS0.4C4 PO
[2016-11-05] MEDS ORDERED: PERC7.5T13 PO (11:04)
[2016-11-20] MEDS ORDERED: PERC10TA27 PO (12:11)
== END 2016-10-26 13:10 | disposition home or self-care (01) ==
LOC: HROP 12:52 → HRIP 12:54 → HROP 13:10
PROVIDERS: ATTEND Hospitalist
DX: N12 Tubulo-interstitial nephritis, not specified as acute or chronic (principal)

== ENCOUNTER 2016-11-03 15:13 | Emergency (ER) | payer SELFPAY ==
[~2016-11-03] VITALS: Ht 162.6 cm; Wt 57.9 kg
[~2016-11-03 15:13] MED LIST changes: -HYDR-3288 PO; -KETO60IN6 IM
[2016-11-03 15:16] VITALS: BP 129/77; PULSE 79; RESP 18; TEMP 98.3; O2SAT 99
[2016-11-03] MEDS ORDERED: SODIUM CHLOR 0.9% 1000 ML INJ 1,000 ML IV SCH (15:38)
[2016-11-03] MEDS ORDERED: MORPHINE SULFATE 4 MG/ML INJ IV PUSH ONE (15:45)
[2016-11-03] MEDS ORDERED: ONDANSETRON HCL 4 MG/2 ML VIAL IVP ONE (15:45)
[2016-11-03] MEDS ORDERED: SODIUM CHLORIDE 0.9% FLUSH 10 ML FLUSH IV FLUSH PRN (15:45)
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
[2016-11-03 15:53] LABS: BLOOD, URINE LARGE (NEG); GLUCOSE,URINE NEG (NEG); KETONE, URINE NEG (NEG); NITRITE,URINE POS (NEG)
[2016-11-03 15:53] LABS: BLOOD, URINE LARGE (NEG); GLUCOSE,URINE NEG (NEG); KETONE, URINE NEG (NEG); NITRITE,URINE POS (NEG); PH, URINE 5.5 (5.0-8.5)
[2016-11-03 16:09] LABS: METHOD OF COLLECTION VOIDED; URINE COLOR YELLOW (YELLW/STRAW)
[2016-11-03 16:10] VITALS: BP 120/75; PULSE 77; RESP 18; O2SAT 99
[2016-11-03 16:10] LABS: WBC, URINE INNUM /hpf (0-5)
[2016-11-03 16:11] LABS: BACTERIA, URINE FEW /hpf; COMMENT (UR) CULTURE INDICATED; CULTURE IF INDICATED CULTURE INDICATED
[2016-11-03 16:11] LABS: METHOD OF COLLECTION VOIDED
[2016-11-03 16:12] LABS: URINE COLOR YELLOW (YELLW/STRAW); WBC, URINE INNUM /hpf (0-5)
[2016-11-03 16:13] LABS: BACTERIA, URINE MOD /hpf; COMMENT (UR) CULTURE INDICATED; CULTURE IF INDICATED CULTURE INDICATED; RBC, URINE 100-200 /hpf (0-3)
[2016-11-03 16:17] LABS: POTASSIUM 3.8 MEQ/L (3.5-5.1)
[2016-11-03 16:20] LABS: AUTOMATED NEUTROPHIL # 6.2 TH/MM3 (1.8-7.7); BASOPHIL # 0.1 TH/MM3 (0-0.2); EOSINOPHIL # 0.7 TH/MM3 (0-0.4); EOSINOPHIL % 6.4 % (0.0-4.0); HEMATOCRIT 36.4 % (39.0-51.0); HEMO FLAGS DIFF FINAL; LYMPH % 23.5 % (9.0-44.0); LYMPHOCYTE # 2.5 TH/MM3 (1.0-4.8); MEAN CELL VOLUME 83.2 FL (80.0-100.0); MEAN CORPUSCULAR HEMOGLOBIN 28.6 PG (27.0-34.0); MEAN CORPUSCULAR HGB CONC 34.4 % (32.0-36.0); MONO % 9.1 % (0.0-8.0); PLATELET COUNT 231 TH/MM3 (150-450); RED BLOOD COUNT 4.37 MIL/MM3 (4.50-5.90); RED CELL DISTRIBUTION WIDTH 12.6 % (11.6-17.2); WHITE BLOOD COUNT 10.5 TH/MM3 (4.0-11.0)
[2016-11-03] MEDS ORDERED: cefTRIAXone INJ 1,000 MG in SODIUM CHLORIDE 0.9% INJ 100 ML IV ONE (16:30)
--- NOTE | 2016-11-03 16:33 | RADRPT ---
EXAM DATE/TIME: 11/03/2016 16:13 [facility] COMPARISON: CT ABDOMEN & PELVIS W/O CONTRAST, October 09, 2016, 21:20. INDICATIONS : Bilateral flank pain. Evaluate continuing hydronephrosis. Recent nephrostomy tube placement three we eks ago. ORAL CONTRAST: No oral contrast ingested. RADIATION DOSE: 6.02 CTDIvol (mGy) MEDICAL HISTORY : Renal calculi. SURGICAL HISTORY : Nephrostomy tube placement. ENCOUNTER: Initial ACUITY: 1 day PAIN SCALE: 5/10 LOCATION: Bilateral flank TECHNIQUE: Volumetric scanning of the abdomen and pelvis was performed. Using automated exposure control and ad justment of the mA and/or kV according to patient size, radiation dose was kept as low as reasonably achievable to obtain optimal diagnostic quality images. DICOM format image data is available electro nically for review and comparison. FINDINGS: There has been interim placement of bilateral ureteral stents proximal J. is turning in the intrarena l pelvis and distally in the bladder as well as bilateral percutaneous nephrostomies. Hydronephrosis on the left has resolved however the 8 mm stone in the proximal ureter remains present against adjace nt to the stent additionally the left lower pole 1 cm stone remains present calyceal as well as 2 adj acent small 2-3 mm stones. Right kidney upper pole 1 cm stone calyceal remains present unchanged with 2 adjacent small 2 mm stones and punctate stones in the lower pole faintly appreciated. No evidence of right hydronephrosis is noted. Bony structures remain intact and remainder o f the intra-abdominal and pelvic structures are normal. CONCLUSION: Placement of bilateral ureteral stents and bilateral percutaneous nephrostomies. Bilateral renal calc lacie appreciated with the 1 cm stone in the proximal left ureter remaining present adjacent to the laxmi nt however there is minimal relief of hydronephrosis. Jin Colon MD on November 03, 2016 at 16:25 Board Certified Radiologist. This report was verified electronically.
[2016-11-03 16:39] VITALS: RESP 18
[2016-11-03] MEDS ORDERED: HYDR-3533 PO (17:19)
[2016-11-03] MEDS ORDERED: CIPR-9 PO (17:19)
--- NOTE | 2016-11-03 17:20 | PD ---
Physical Exam Narrative Patient signed out to me by Dr. Golden. Please see his documentation for complete details. Briefly, patient has bilateral nephrostomy tubes due to obstructing stones. He comes in complaining of pain and swelling to the nephrostomy sites. Exam shows no erythema or warmth of the skin surrounding the tubes. Tubes are functioning well. Data Data Last Documented VS Vital Signs Date Time Temp Pulse Resp B/P (MAP) Pulse Ox O2 Delivery O2 Flow Rate FiO2 11/03/16 16:39 18 11/03/16 16:10 77 120/75 (90) 99 Room Air 11/03/16 15:16 98.3 Orders Orders Basic Metabolic Panel (Bmp) (11/03/16 15:38) Complete Blood Count With Diff (11/03/16 15:38) Lactic Acid (11/03/16 15:38) Urinalysis - C+S If Indicated (11/03/16 15:38) Ct Abd/Pel W/O Iv Contrast (11/03/16 15:38) Iv Access Insert/Monitor (11/03/16 15:38) Ecg Monitoring (11/03/16 15:38) Oximetry (11/03/16 15:38) Morphine Inj (Morphine Inj) (11/03/16 15:45) Ondansetron Inj (Zofran Inj) (11/03/16 15:45) Sodium Chlor 0.9% 1000 Ml Inj (Ns 1000 M (11/03/16 15:38) Sodium Chloride 0.9% Flush (Ns Flush) (11/03/16 15:45) Urinalysis - C+S If Indicated (11/03/16 15:41) Urine Culture (11/03/16 15:25) Urine Culture (11/03/16 10:24) Ceftriaxone Inj (Rocephin Inj) (11/03/16 16:30) Labs Laboratory Tests Test 11/03/16 15:24 11/03/16 15:25 11/03/16 15:35 11/03/16 15:40 Urine Collection Type VOIDED VOIDED Urine Color YELLOW YELLOW Urine Turbidity SLIGHT SLIGHT Urine pH 6.0 5.5 Urine Specific [place] 1.015 1.013 Urine Protein 300 OR GREATER mg/dL 100 mg/dL Urine Glucose (UA) NEG mg/dL NEG mg/dL Urine Ketones NEG mg/dL NEG mg/dL Urine Occult Blood LARGE LARGE Urine Nitrite POS POS Urine Bilirubin NEG NEG Urine Leukocyte Esterase MOD LARGE Urine RBC 100-200 /hpf 25-49 /hpf Urine WBC INNUM /hpf INNUM /hpf Urine WBC Clumps MANY MANY Urine Bacteria MOD /hpf FEW /hpf Microscopic Urinalysis Comment CULTURE INDICATED CULTURE INDICATED Urine Collection Time 1524 1525 White Blood Count 10.5 TH/MM3 Red Blood Count 4.37 MIL/MM3 Hemoglobin 12.5 GM/DL Hematocrit 36.4 % Mean Corpuscular Volume 83.2 FL Mean Corpuscular Hemoglobin 28.6 PG Mean Corpuscular Hemoglobin Concent 34.4 % Red Cell Distribution Width 12.6 % Platelet Count 231 TH/MM3 Mean Platelet Volume 10.2 FL Neutrophils (%) (Auto) 60.0 % Lymphocytes (%) (Auto) 23.5 % Monocytes (%) (Auto) 9.1 % Eosinophils (%) (Auto) 6.4 % Basophils (%) (Auto) 1.0 % Neutrophils # (Auto) 6.2 TH/MM3 Lymphocytes # (Auto) 2.5 TH/MM3 Monocytes # (Auto) 1.0 TH/MM3 Eosinophils # (Auto) 0.7 TH/MM3 Basophils # (Auto) 0.1 TH/MM3 CBC Comment DIFF FINAL Differential Comment Blood Urea Nitrogen 15 MG/DL Creatinine 1.20 MG/DL Random Glucose 97 MG/DL Calcium Level 8.5 MG/DL Sodium Level 134 MEQ/L Potassium Level 3.8 MEQ/L Chloride Level 101 MEQ/L Carbon Dioxide Level 28.0 MEQ/L Anion Gap 5 MEQ/L Estimat Glomerular Filtration Rate 67 ML/MIN Lactic Acid Level 1.4 mmol/L [facility] Supervised Visit with RAMON: No Narrative Course CT abdomen and pelvis shows the tubes are in place. There is continued hydronephrosis on the right. Urinalysis is positive for UTI. I spoke with Dr. Logan about the patient. He says the patient can be discharged with by mouth antibiotics and follow-up in the office. Patient has an appointment with urology. He is advised to keep this appointment. He'll be discharged with prescription for Cipro and pain medicine. Advised to return to the ED as needed for any worsening symptoms. Diagnosis Primary Impression: Urinary tract infection Qualified Codes: N30.00 - Acute cystitis without hematuria Additional Impression: Calculus of both kidneys Patient Instructions: General Instructions, Urinary Tract Infection in Men (ED) Additional Instruction: Make sure to keep your appointment with urology on . Take all of your antibiotic. Take pain medicine as needed. Return to the ED as needed for any worsening symptoms. Scripts Hydrocodone-Acetaminophen (Lortab) 5-325 Mg Tab 1 TAB PO Q6H Y for PAIN, #10 TAB 0 Refills Prov: Lauren Anderson MD 11/03/16 Ciprofloxacin (Cipro) 500 Mg Tab 500 MG PO BID for Infection for 7 Days, TAB 0 Refills Prov: Lauren Anderson MD 11/03/16 Disposition: 01 DISCHARGE HOME Condition: Stable Lauren Anderson MD Nov 03, 2016 17:20
[2016-11-05] MEDS ORDERED: PERC7.5T13 PO (11:04)
[2016-11-20] MEDS ORDERED: PERC10TA27 PO (12:11)
== END 2016-11-03 17:26 | disposition home or self-care (01) ==
LOC: PHED 15:13
DX: N30.00 Acute cystitis without hematuria (principal)
CPT/HCPCS: 74176; 80048; 81001; 83605; 85025; 87077; 87086; 87186; 96365; 96375; 99285; J0696; J2270; J2405; J7030

== ENCOUNTER → 2016-11-11 | Day surgery (SDC) | payer SELFPAY ==
[~2016-11-11] VITALS: Ht 162.6 cm; Wt 60.2 kg
[~2016-11-11] MED LIST changes: +*morphine SULFATE 8 MG/ML PERIprocedure ONLY ONE; +CHLORHEXIDINE GLUCONATE 2 % 1 PACK (2 CLOTHS) TOPICAL PRN; +CIPR-9 PO; +CYCL1TAB29 PO; +DO NOT ADM ANY ANTICOAGULANT DRUGS PRN; +INSULIN HUMAN REGULAR 1,000 UNITS/10 ML VIAL SQ PRN; +LACTATED RINGER'S 1000 ML IV PRN; +METOPROLOL TARTRATE 25 MG TAB PO PRN; +MIDAZOLAM HCL 2 MG/2 ML VIAL ONE; +MORPHINE SULFATE 4 MG/ML INJ IV PUSH PRN; +ONDANSETRON HCL 4 MG/2 ML VIAL IV PUSH ONE; +ONDANSETRON HCL 4 MG/2 ML VIAL IV PUSH PRN; +PERC10TA27 PO; +PERC7.5T13 PO; +PHEN0.4T PO; +POVIDONE IODINE 5% (ANTISEPSIS KIT) 4 APPLICATIONS EACH NARE PRN; +PROPOFOL 200 MG/20 ML AMP IV ONE; +SODIUM CHLORID 0.9% 500 ML IV PRN; +oxyCODONE/ACETAMINOPHEN 10 MG/325 MG TAB PO PRN
--- NOTE | 2016-11-11 06:43 | RADRPT ---
EXAM DATE/TIME: 11/11/2016 06:17 [facility] COMPARISON: No previous studies available for comparison. INDICATIONS : Pre OP lithotripsy. MEDICAL HISTORY : None. SURGICAL HISTORY : None. ENCOUNTER: Initial ACUITY: 1 day PAIN SCORE: 0/10 LOCATION: Bilateral abdomen FINDINGS: Bilateral nephroureteral catheters in place. 11 x 9 mm calcified calculus near the mid right kidney. 8mm calcified calculus in the proximal left ureter. 8 mm calcified calculus projecting in the region of the inferior left kidney. Additional 2-3 mm calculi noted on CT exam are not well-demonstrated on radiographs. Nonobstructive bowel gas pattern. No significant free air. Osseous structures are intact . CONCLUSION: 1. Bilateral nephroureteral catheters in place with bilateral renal calculi, as above. Ole Pham MD on November 11, 2016 at 6:39 Board Certified Radiologist. This report was verified electronically.
[2016-11-11] MEDS: ceFAZolin 1,000 MG/NS 100 ML IV SCH ×4 (07:48→07:56)
--- NOTE | 2016-11-11 10:17 | PD.OP ---
Operative Report Date of Surgery: Nov 11, 2016 Preoperative Diagnosis: Left ureteral and renal calculi Postoperative Diagnosis: Same Procedure: Left extracorporeal shockwave lithotripsy Anesthesia: Gen. LMA Surgeon: Joni Novak Tram Inspector(s): None Resident Surgeon: None Operation and Findings: 41-year-old male with history of obstructing left sided renal and ureteral calculi. Patient was noted to have a 8 mm proximal left ureteral stone in the 7 mm left lower pole stone. Risk and benefits were discussed preoperatively and he was willing to proceed. The patient was brought to the operating room and identified by myself as Merrill Muñoz. He was placed on the operating table in the supine position, received preprocedure antibiotics and general LMA anesthesia was administered. Under fluoroscopic and ultrasound imaging guidance the stone was visualized in the proximal left ureter and ESWL therapy commenced. Patient received a total of 2000 shocks with good fragmentation of the ureteral stone visualized on imaging. Attention then was directed to the left lower pole was 7 mm stone was visualized. 1000 shocks were administered to this area with good fragmentation of the stone. He tolerated the procedure well and was awoken and transported to the recovery room stable condition. He will follow-up in the office in 2 weeks and obtain a KUB x-ray prior. The patient has a residual 1 cm stone on the right side and will need further treatment for the stone in the future. Joni Novak DO Nov 11, 2016 10:17
[2016-11-11 12:16] VITALS: BP 127/71; PULSE 70; RESP 18; TEMP 98; O2SAT 98
== END | disposition home or self-care (01) ==
LOC: HSDC 06:12
PROVIDERS: ATTEND Urology
DX: N20.2 Calculus of kidney with calculus of ureter (principal); F17.210 Nicotine dependence, cigarettes, uncomplicated; Z86.14 Personal history of Methicillin resistant Staphylococcus aureus infection
CPT/HCPCS: 00872; 50590; 74000; J0690; J2250; J2270; J2405; J3010

== ENCOUNTER 2016-11-21 21:35 | Emergency (ER) | payer SELFPAY ==
[~2016-11-21] VITALS: Ht 162.6 cm; Wt 60.2 kg
[~2016-11-21 21:35] MED LIST changes: -*morphine SULFATE 8 MG/ML PERIprocedure ONLY ONE; -CHLORHEXIDINE GLUCONATE 2 % 1 PACK (2 CLOTHS) TOPICAL PRN; -CIPR-9 PO; -CYCL1TAB29 PO; -DO NOT ADM ANY ANTICOAGULANT DRUGS PRN; -INSULIN HUMAN REGULAR 1,000 UNITS/10 ML VIAL SQ PRN; -LACTATED RINGER'S 1000 ML IV PRN; -METOPROLOL TARTRATE 25 MG TAB PO PRN; -MIDAZOLAM HCL 2 MG/2 ML VIAL ONE; -MORPHINE SULFATE 4 MG/ML INJ IV PUSH PRN; -ONDANSETRON HCL 4 MG/2 ML VIAL IV PUSH ONE; -ONDANSETRON HCL 4 MG/2 ML VIAL IV PUSH PRN; -PERC7.5T13 PO; -PHEN0.4T PO; -POVIDONE IODINE 5% (ANTISEPSIS KIT) 4 APPLICATIONS EACH NARE PRN; -PROPOFOL 200 MG/20 ML AMP IV ONE; -SODIUM CHLORID 0.9% 500 ML IV PRN; -TAMS0.4C4 PO; -oxyCODONE/ACETAMINOPHEN 10 MG/325 MG TAB PO PRN
[2016-11-21 21:47] VITALS: BP 114/61; PULSE 90; RESP 16; TEMP 98; O2SAT 95
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
--- NOTE | 2016-11-21 23:09 | RADRPT ---
EXAM DATE/TIME: 11/21/2016 22:43 [facility] COMPARISON: CT ABDOMEN & PELVIS W/O CONTRAST, November 03, 2016, 16:13. INDICATIONS : Patient states that RT nephrostomy tube fell out this evening. Now has pain that side. ORAL CONTRAST: No oral contrast ingested. RADIATION DOSE: 5.96 CTDIvol (mGy) MEDICAL HISTORY : Renal calculi. SURGICAL HISTORY : Bilateral nephrostomy tube placement, renal stents. ENCOUNTER: Initial ACUITY: 1 day PAIN SCALE: 7/10 LOCATION: Right flank TECHNIQUE: Volumetric scanning of the abdomen and pelvis was performed. Using automated exposure control and ad justment of the mA and/or kV according to patient size, radiation dose was kept as low as reasonably achievable to obtain optimal diagnostic quality images. DICOM format image data is available electro nically for review and comparison. FINDINGS: LOWER LUNGS: Not well visualized. No large effusion. LIVER: Homogeneous density without lesion. There is no dilation of the biliary tree. No calcified gallston es. SPLEEN: Normal size without lesion. PANCREAS: Within normal limits. KIDNEYS: Bilateral renal calculi with a 7 mm stone in the lower pole collecting system of the left kidney and a 1.2 cm stone in the upper pole of the right kidney. Previously seen right double-J stent is no long er present. There is recurrent hydronephrosis of the right kidney. Focal obstruction of an upper pole anterior calyx in the region of the stone with probable parenchymal cyst in the midpole. The left do uble-J stent remains unchanged in position. ADRENAL GLANDS: Within normal limits. VASCULAR: There is no aortic aneurysm. BOWEL/MESENTERY: The stomach, small bowel, and colon demonstrate no acute abnormality. There is no free intraperitone al air or fluid. ABDOMINAL WALL: Within normal limits. RETROPERITONEUM: Borderline prominent retroperitoneal lymph nodes on the left were present previously and are basicall y the same. These are likely reactive. BLADDER: No wall thickening or mass. REPRODUCTIVE: Stable prostatic calcifications. INGUINAL: There is no lymphadenopathy or hernia. MUSCULOSKELETAL: Within normal limits for patient age. CONCLUSION: Right double-J stent is no longer present. Recurrent mild hydronephrosis of the right renal collectin g system. Left double-J stent remains unchanged in position without hydronephrosis. Bilateral renal calculi as detailed above. Stable retroperitoneal borderline prominent lymph nodes on the left beginning at the level of the masha al hilum and extending inferiorly. These are presumably reactive. Prostate calcifications, unchanged. Jaswinder Gasca MD on November 21, 2016 at 22:57 Board Certified Radiologist. This report was verified electronically.
== END 2016-11-21 23:49 | disposition home or self-care (01) ==
LOC: PHED 21:35
DX: N20.0 Calculus of kidney (principal); T83.022A Displacement of nephrostomy catheter, initial encounter; F17.200 Nicotine dependence, unspecified, uncomplicated; Z87.09 Personal history of other diseases of the respiratory system; Z86.59 Personal history of other mental and behavioral disorders; Z87.448 Personal history of other diseases of urinary system; Z87.39 Personal history of other diseases of the musculoskeletal system and connective tissue; Z86.69 Personal history of other diseases of the nervous system and sense organs; Z87.2 Personal history of diseases of the skin and subcutaneous tissue
CPT/HCPCS: 74176

== ENCOUNTER 2016-12-01 22:49 | Emergency (ER) | payer OTHER ==
[~2016-12-01] VITALS: Ht 162.6 cm; Wt 56.8 kg
[2016-12-01 22:50] VITALS: BP 116/68; PULSE 93; RESP 18; TEMP 98.6; O2SAT 96
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
[2016-12-02] MEDS ORDERED: CYCL1TAB29 PO (00:28)
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
[2016-12-02 01:01] VITALS: BP 142/77
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
== END 2016-12-02 01:03 | disposition home or self-care (01) ==
LOC: PHED 22:49
DX: S09.90XA Unspecified injury of head, initial encounter (principal); S40.011A Contusion of right shoulder, initial encounter; S50.01XA Contusion of right elbow, initial encounter; S20.211A Contusion of right front wall of thorax, initial encounter; S70.01XA Contusion of right hip, initial encounter; S50.311A Abrasion of right elbow, initial encounter; M54.2 Cervicalgia; M54.5 Low back pain; F17.200 Nicotine dependence, unspecified, uncomplicated; V19.88XA Pedal cyclist (driver) (passenger) injured in other specified transport accidents, initial encounter; Y93.55 Activity, bike riding; Z86.59 Personal history of other mental and behavioral disorders; Z87.448 Personal history of other diseases of urinary system; Z87.39 Personal history of other diseases of the musculoskeletal system and connective tissue; Z86.69 Personal history of other diseases of the nervous system and sense organs
CPT/HCPCS: 70450; 71010; 72040; 72072; 72100; 73030; 73080; 73502; 99284

== ENCOUNTER 2016-12-02 19:34 | Emergency (ER) | payer SELFPAY ==
[~2016-12-02 19:34] MED LIST changes: +CYCL1TAB29 PO
== END 2016-12-02 19:53 | disposition left against medical advice (07) ==
LOC: PHED 19:34
DX: Z53.21 Procedure and treatment not carried out due to patient leaving prior to being seen by health care provider (principal)
CPT/HCPCS: 99281

== ENCOUNTER 2016-12-11 19:19 | Emergency (ER) | payer SELFPAY ==
[~2016-12-11] VITALS: Ht 162.6 cm; Wt 59.2 kg
[2016-12-11 19:26] VITALS: BP 136/76; PULSE 74; RESP 18; TEMP 98.6; O2SAT 99
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
[2016-12-11] MEDS ORDERED: PHENAZOPYRIDINE HCL 200 MG TAB PO ONE (19:45)
[2016-12-11] MEDS ORDERED: CIPROFLOXACIN 500 MG TAB PO ONE (19:45)
[2016-12-11 19:55] LABS: BLOOD, URINE LARGE (NEG); GLUCOSE,URINE NEG (NEG); KETONE, URINE NEG (NEG); NITRITE,URINE POS (NEG); PH, URINE 6.5 (5.0-8.5)
[2016-12-11 20:01] LABS: BACTERIA, URINE MANY /hpf; COMMENT (UR) CULTURE INDICATED; CULTURE IF INDICATED CULTURE INDICATED; RBC, URINE 100-200 /hpf (0-3); URINE COLOR YELLOW (YELLW/STRAW); WBC, URINE 100-200 /hpf (0-5)
[2016-12-11] MEDS ORDERED: CIPR-9 PO (20:09)
[2016-12-11] MEDS ORDERED: PHEN0.4T PO (20:09)
[2016-12-11 20:20] VITALS: BP 120/67; PULSE 73; RESP 16; O2SAT 98
== END 2016-12-11 20:33 | disposition home or self-care (01) ==
LOC: PHED 19:19
DX: N39.0 Urinary tract infection, site not specified (principal); R31.9 Hematuria, unspecified; B96.20 Unspecified Escherichia coli [E. coli] as the cause of diseases classified elsewhere; J45.909 Unspecified asthma, uncomplicated; F41.9 Anxiety disorder, unspecified; F32.9 Major depressive disorder, single episode, unspecified; R56.9 Unspecified convulsions; Z79.899 Other long term (current) drug therapy; Z87.442 Personal history of urinary calculi
CPT/HCPCS: 81001; 87077; 87086; 87186; 99283

== ENCOUNTER 2017-01-28 20:25 | Emergency (ER) | payer SELFPAY ==
[~2017-01-28 20:25] MED LIST changes: +CIPR-9 PO; +CYCL10TA PO; -CYCL1TAB29 PO; +PHEN0.4T PO
[2017-01-28 20:31] VITALS: BP 135/86; PULSE 79; RESP 18; TEMP 98.8; O2SAT 99
[2017-01-28] MEDS ORDERED: SODIUM CHLOR 0.9% 1000 ML INJ 1,000 ML IV ONE (20:49)
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
[2017-01-28] MEDS ORDERED: SODIUM CHLORIDE 0.9% FLUSH 10 ML FLUSH IVF PRN (21:00)
[2017-01-28] MEDS ORDERED: ONDANSETRON HCL 4 MG/2 ML VIAL IV PUSH ONE (21:00)
[2017-01-28] MEDS ORDERED: MORPHINE SULFATE 4 MG/ML INJ IV PUSH ONE (21:00)
[2017-01-28 21:17] LABS: AUTOMATED NEUTROPHIL # 8.5 TH/MM3 (1.8-7.7); BACTERIA, URINE MOD /hpf; BASOPHIL # 0.2 TH/MM3 (0-0.2); BASOPHIL % 1.2 % (0.0-2.0); BLOOD, URINE MOD (NEG); EOSINOPHIL # 0.4 TH/MM3 (0-0.4); EOSINOPHIL % 3.2 % (0.0-4.0); GLUCOSE,URINE NEG (NEG); HEMATOCRIT 41.6 % (39.0-51.0); HEMO FLAGS DIFF FINAL; KETONE, URINE NEG (NEG); LYMPHOCYTE # 2.4 TH/MM3 (1.0-4.8); MEAN CELL VOLUME 84.7 FL (80.0-100.0); MEAN CORPUSCULAR HEMOGLOBIN 28.1 PG (27.0-34.0); MEAN CORPUSCULAR HGB CONC 33.2 % (32.0-36.0); MONO % 8.6 % (0.0-8.0); MUCUS URINE FEW /lpf (OCC); NITRITE,URINE NEG (NEG); PLATELET COUNT 243 TH/MM3 (150-450); RED BLOOD COUNT 4.92 MIL/MM3 (4.50-5.90); RED CELL DISTRIBUTION WIDTH 15.4 % (11.6-17.2); URINE COLOR YELLOW (YELLW/STRAW); WHITE BLOOD COUNT 12.5 TH/MM3 (4.0-11.0)
[2017-01-28 21:19] LABS: COMMENT (UR) CULTURE INDICATED; CULTURE IF INDICATED CULTURE INDICATED
[2017-01-28 21:34] LABS: ANION GAP 6 MEQ/L (5-15); AST (GOT) 37 U/L (15-37); BICARBONATE 28.3 MEQ/L (21.0-32.0); BLOOD UREA NITROGEN 19 MG/DL (7-18); CHLORIDE 103 MEQ/L (98-107); GLOMERULAR FILTRATION RATE 61 ML/MIN (>89); SODIUM (NA) 137 MEQ/L (136-145)
[2017-01-28 21:35] LABS: ALT (GPT) 49 U/L (12-78)
[2017-01-28 21:37] LABS: ALKALINE PHOSPHATASE 89 U/L (45-117); TOTAL BILIRUBIN ADULT 0.4 MG/DL (0.2-1.0)
--- NOTE | 2017-01-28 21:58 | RADRPT ---
EXAM DATE/TIME: 01/28/2017 21:32 [place] COMPARISON: No previous studies available for comparison. INDICATIONS : Abdominal pain. Left flank. ORAL CONTRAST: No oral contrast ingested. RADIATION DOSE: 6.71 CTDIvol (mGy) MEDICAL HISTORY : Renal calculi. Hydronephrosis. SURGICAL HISTORY : Nephrostomy tube, left. ENCOUNTER: Initial ACUITY: 1 day PAIN SCALE: 7/10 LOCATION: Left abdomen TECHNIQUE: Volumetric scanning of the abdomen and pelvis was performed. Using automated exposure control and ad justment of the mA and/or kV according to patient size, radiation dose was kept as low as reasonably achievable to obtain optimal diagnostic quality images. DICOM format image data is available electro nically for review and comparison. FINDINGS: Again seen are bilateral renal calculi. On the right side is a I. calculus in the upper pole and on t he left side a 7 mm calculus in the lower pole similar to prior examination. Left-sided double J sten t is present. No significant dilatation of the renal collecting on the left. Dilatation upper pole co llecting system on the right is relatively stable November 21. Lung bases are clear. No acute findings in the liver, spleen, adrenals or pancreas. No calcified gall stones. Mild constipation. No free fluid or free air. No acute bony abnormalities. CONCLUSION: 1. Essentially stable exam since November 21. Left sided nephrostomy and double J stent present. 2. Stable dilatation of upper pole right renal collecting system. 3. Stable borderline enlarged retroperitoneal lymph nodes. 4. Stable bilateral renal calculi as above with additional tiny calculi in the lower pole right victor hugo Roberto MD on January 28, 2017 at 21:52 Board Certified Radiologist. This report was verified electronically.
[2017-01-28] MEDS ORDERED: KETOROLAC TROMETHAMINE 30 MG/ML (IVP) VIAL IV PUSH ONE (22:15)
[2017-01-28] MEDS ORDERED: cefTRIAXone INJ 1,000 MG in SODIUM CHLORIDE 0.9% INJ 100 ML IV ONE (22:15)
[2017-01-28] MEDS ORDERED: IBUP-232 PO (22:17)
[2017-01-28] MEDS ORDERED: CEPH-460 PO (22:17)
[2017-01-28] MEDS ORDERED: PHEN0.4T PO (22:17)
== END 2017-01-28 23:37 | disposition home or self-care (01) ==
LOC: NEPE 20:25
DX: N39.0 Urinary tract infection, site not specified (principal); D72.829 Elevated white blood cell count, unspecified; N20.0 Calculus of kidney; J45.909 Unspecified asthma, uncomplicated; F41.9 Anxiety disorder, unspecified; R56.9 Unspecified convulsions; Z87.442 Personal history of urinary calculi; Z93.6 Other artificial openings of urinary tract status
CPT/HCPCS: 74176; 80053; 81001; 83690; 85025; 87086; 96361; 96374; 96375; 99285; J0696; J1885; J2270; J2405; J7030

== ENCOUNTER 2017-06-26 21:41 | Emergency (ER) | payer SELFPAY ==
[~2017-06-26] VITALS: Ht 162.6 cm; Wt 59.0 kg
[~2017-06-26 21:41] MED LIST changes: +CEPH-460 PO; +IBUP-232 PO
[2017-06-26] MEDS ORDERED: IOHEXOL 350 MG/ML 10 ML VIAL (for RAD DIAG) IVCONTRAST ONE (21:42)
[2017-06-26 22:11] VITALS: BP 113/69; PULSE 76; RESP 18; TEMP 97.7; O2SAT 98
[2017-06-26 22:28] VITALS: BP 122/75; PULSE 64; RESP 18; O2SAT 98
[2017-06-26] MEDS ORDERED: PANTOPRAZOLE SODIUM 40 MG VIAL IV PUSH ONE (22:30)
[2017-06-26] MEDS ORDERED: SODIUM CHLOR 0.9% 1000 ML INJ 1,000 ML IV SCH (22:30)
[2017-06-26] MEDS ORDERED: ONDANSETRON HCL 4 MG/2 ML VIAL IV PUSH ONE (22:30)
[2017-06-26] MEDS ORDERED: MORPHINE SULFATE 2 MG/ML SYRINGE IV PUSH ONE (22:30)
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
[2017-06-26 22:51] LABS: AUTOMATED NEUTROPHIL # 5.4 TH/MM3 (1.8-7.7); BASOPHIL # 0.1 TH/MM3 (0-0.2); BASOPHIL % 1.5 % (0.0-2.0); EOSINOPHIL # 0.6 TH/MM3 (0-0.4); EOSINOPHIL % 6.3 % (0.0-4.0); HEMATOCRIT 42.4 % (39.0-51.0); HEMOGLOBIN 14.3 GM/DL (13.0-17.0); MEAN CELL VOLUME 85.4 FL (80.0-100.0); MEAN CORPUSCULAR HEMOGLOBIN 28.8 PG (27.0-34.0); MEAN CORPUSCULAR HGB CONC 33.7 % (32.0-36.0); MONO % 7.1 % (0.0-8.0); MONOCYTE # 0.7 TH/MM3 (0-0.9); NEUT % 55.1 % (16.0-70.0); PLATELET COUNT 230 TH/MM3 (150-450); RED BLOOD COUNT 4.97 MIL/MM3 (4.50-5.90); RED CELL DISTRIBUTION WIDTH 13.8 % (11.6-17.2); WHITE BLOOD COUNT 9.9 TH/MM3 (4.0-11.0)
[2017-06-26 23:06] VITALS: O2SAT 98
[2017-06-26 23:09] LABS: ALT (GPT) 35 U/L (12-78)
[2017-06-26 23:11] LABS: ALKALINE PHOSPHATASE 85 U/L (45-117); TOTAL BILIRUBIN ADULT 0.4 MG/DL (0.2-1.0); TOTAL PROTEIN 8.1 GM/DL (6.4-8.2)
[2017-06-26 23:12] LABS: BACTERIA, URINE MANY /hpf; BILIRUBIN, URINE NEG (NEG); BLOOD, URINE LARGE (NEG); GLUCOSE,URINE NEG (NEG); KETONE, URINE NEG (NEG); MUCUS URINE MANY /lpf (OCC); NITRITE,URINE POS (NEG); PH, URINE 5.5 (5.0-8.5); URINE COLOR YELLOW (YELLW/STRAW); URINE LEUKOCYTE ESTERASE LARGE (NEG); WHITE BLOOD CELL CLUMPS FEW
[2017-06-26 23:18] LABS: PROTHROMBIN TIME - PATIENT 10.6 SEC (9.8-11.6)
[2017-06-26 23:21] LABS: ALBUMIN 3.6 GM/DL (3.4-5.0); AST (GOT) 41 U/L (15-37); BLOOD UREA NITROGEN 18 MG/DL (7-18); CALCIUM 9.2 MG/DL (8.5-10.1); CHLORIDE 105 MEQ/L (98-107); CREATININE 1.41 MG/DL (0.60-1.30); GLOMERULAR FILTRATION RATE 55 ML/MIN (>89); GLUCOSE,RANDOM 113 MG/DL (74-106); SODIUM (NA) 143 MEQ/L (136-145)
--- NOTE | 2017-06-27 00:11 | RADRPT ---
EXAM DATE/TIME: 06/26/2017 23:52 [facility] COMPARISON: No previous studies available for comparison. INDICATIONS : Right flank pain. IV CONTRAST: 95 cc Omnipaque 350 (iohexol) IV ORAL CONTRAST: No oral contrast ingested. RADIATION DOSE: 4.64 CTDIvol (mGy) MEDICAL HISTORY : Renal calculi. SURGICAL HISTORY : Renal stents ENCOUNTER: Initial ACUITY: 1 day PAIN SCALE: 7/10 LOCATION: Right flank TECHNIQUE: Volumetric scanning of the abdomen and pelvis was performed. Using automated exposure control and ad justment of the mA and/or kV according to patient size, radiation dose was kept as low as reasonably achievable to obtain optimal diagnostic quality images. DICOM format image data is available electro nically for review and comparison. FINDINGS: LOWER LUNGS: Bibasilar atelectasis. LIVER: Homogeneous density without lesion. There is no dilation of the biliary tree. No calcified gallston es. SPLEEN: Normal size without lesion. PANCREAS: Within normal limits. KIDNEYS: Bilateral nonobstructing renal calculi. 2 stones on the right measuring 15 mm and 5 mm. 2 stones on t he left each measuring 5 mm. ADRENAL GLANDS: Within normal limits. VASCULAR: There is no aortic aneurysm. BOWEL/MESENTERY: The stomach, small bowel, and colon demonstrate no acute abnormality. There is no free intraperitone al air or fluid. ABDOMINAL WALL: Within normal limits. RETROPERITONEUM: There is no lymphadenopathy. BLADDER: No wall thickening or mass. REPRODUCTIVE: Within normal limits. INGUINAL: There is no lymphadenopathy or hernia. MUSCULOSKELETAL: Within normal limits for patient age. CONCLUSION: 1. Bilateral nonobstructing renal calculi. The largest stone is on the right measuring 15 mm. Kishore Zimmerman Jr., MD on June 27, 2017 at 0:07 Board Certified Radiologist. This report was verified electronically.
[2017-06-27] MEDS ORDERED: ROBA750T PO (00:49)
[2017-06-27] MEDS ORDERED: BACT800T5 PO (00:49)
[2017-06-27] MEDS ORDERED: PROT40TA PO (00:49)
[2017-06-27] MEDS ORDERED: CARA1TAB6 PO (00:52)
== END 2017-06-27 01:10 | disposition home or self-care (01) ==
LOC: NEPC 21:41
DX: N30.00 Acute cystitis without hematuria (principal); F19.10 Other psychoactive substance abuse, uncomplicated; M54.9 Dorsalgia, unspecified; K92.2 Gastrointestinal hemorrhage, unspecified; B96.20 Unspecified Escherichia coli [E. coli] as the cause of diseases classified elsewhere; M54.2 Cervicalgia; G89.29 Other chronic pain; N20.0 Calculus of kidney; F17.200 Nicotine dependence, unspecified, uncomplicated; Z87.442 Personal history of urinary calculi; Z86.69 Personal history of other diseases of the nervous system and sense organs; Z86.59 Personal history of other mental and behavioral disorders
CPT/HCPCS: 74177; 80053; 80307; 81001; 83690; 85025; 85610; 85730; 87077; 87086; 87186; 96374; 96375; 99284; C9113; J2270; J2405; J7030; Q9967

== ENCOUNTER 2017-07-12 22:45 | Emergency (ER) | payer SELFPAY ==
[~2017-07-12] VITALS: Ht 162.6 cm; Wt 59.0 kg
[~2017-07-12 22:45] MED LIST changes: +BACT800T5 PO; +CARA1TAB6 PO; -CEPH-460 PO; -CIPR-9 PO; -CYCL10TA PO; -IBUP-232 PO; -PHEN0.4T PO; +PROT40TA PO; +ROBA750T PO
[2017-07-12 22:47] VITALS: BP 117/84; PULSE 69; RESP 20; TEMP 98.1; O2SAT 97
[2017-07-13] MEDS ORDERED: KETOROLAC TROMETHAMINE 30 MG/ML (IVP) VIAL IV PUSH ONE (01:30)
[2017-07-13] MEDS ORDERED: SODIUM CHLORIDE 0.9% FLUSH 10 ML FLUSH IV FLUSH PRN (01:30)
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
[2017-07-13 02:53] LABS: AUTOMATED NEUTROPHIL # 6.6 TH/MM3 (1.8-7.7); BASOPHIL # 0.1 TH/MM3 (0-0.2); BASOPHIL % 1.3 % (0.0-2.0); EOSINOPHIL # 0.6 TH/MM3 (0-0.4); EOSINOPHIL % 5.6 % (0.0-4.0); HEMATOCRIT 37.5 % (39.0-51.0); HEMOGLOBIN 12.7 GM/DL (13.0-17.0); LYMPH % 25.6 % (9.0-44.0); LYMPHOCYTE # 2.9 TH/MM3 (1.0-4.8); MEAN CELL VOLUME 86.6 FL (80.0-100.0); MEAN CORPUSCULAR HEMOGLOBIN 29.2 PG (27.0-34.0); MEAN CORPUSCULAR HGB CONC 33.8 % (32.0-36.0); MEAN PLATELET VOLUME 11.6 FL (7.0-11.0); MONO % 8.9 % (0.0-8.0); NEUT % 58.6 % (16.0-70.0); PLATELET COUNT 176 TH/MM3 (150-450); RED BLOOD COUNT 4.33 MIL/MM3 (4.50-5.90); RED CELL DISTRIBUTION WIDTH 13.4 % (11.6-17.2); WHITE BLOOD COUNT 11.2 TH/MM3 (4.0-11.0)
[2017-07-13 02:56] LABS: BACTERIA, URINE MOD /hpf; BILIRUBIN, URINE NEG (NEG); BLOOD, URINE SMALL (NEG); CALCIUM OXALATE CRYSTALS,URINE OCC /hpf; GLUCOSE,URINE NEG (NEG); HYALINE CAST, URINE 2 /lpf (RARE); KETONE, URINE NEG (NEG); MUCUS URINE FEW /lpf (OCC); NITRITE,URINE POS (NEG); PH, URINE 6.5 (5.0-8.5); URINE COLOR YELLOW (YELLW/STRAW); URINE LEUKOCYTE ESTERASE LARGE (NEG); WHITE BLOOD CELL CLUMPS FEW
[2017-07-13 03:07] LABS: ALBUMIN 3.2 GM/DL (3.4-5.0); ALT (GPT) 33 U/L (12-78); AST (GOT) 30 U/L (15-37); BICARBONATE 26.5 MEQ/L (21.0-32.0); BLOOD UREA NITROGEN 14 MG/DL (7-18); CALCIUM 8.5 MG/DL (8.5-10.1); CHLORIDE 107 MEQ/L (98-107); GLOMERULAR FILTRATION RATE 82 ML/MIN (>89); GLUCOSE,RANDOM 109 MG/DL (74-106); SODIUM (NA) 140 MEQ/L (136-145)
[2017-07-13 03:10] LABS: ALKALINE PHOSPHATASE 74 U/L (45-117); TOTAL BILIRUBIN ADULT 0.2 MG/DL (0.2-1.0); TOTAL PROTEIN 7.1 GM/DL (6.4-8.2)
--- NOTE | 2017-07-13 03:23 | RADRPT ---
EXAM DATE/TIME: 07/13/2017 02:17 [facility] COMPARISON: No previous studies available for comparison. INDICATIONS : Right flank pain x 1 week. History of kidney stones. MEDICAL HISTORY : Renal calculi. SURGICAL HISTORY : Bilateral nephrostomy tube. ENCOUNTER: Initial ACUITY: 1 week PAIN SCORE: 9/10 LOCATION: Bilateral flank TECHNOLOGIST IMPRESSION: MEASUREMENTS: RIGHT KIDNEY: 12.0 x 7.6 x 5.3 cm LEFT KIDNEY: 10.8 x 6.0 x 6.2 cm FINDINGS: RIGHT KIDNEY: Renal cortex is normal in thickness and echotexture. No hydronephrosis, or mass. Densely shadowing stone upper pole on the right measuring 1.9 cm. LEFT KIDNEY: Renal cortex is normal in thickness and echotexture. No hydronephrosis, or mass. Mi nimally shadowing stone lower pole left BLADDER: Within normal limits given the degree of distension. CONCLUSION: Bilateral renal stones. No evidence of significant hydronephrosis. Minimally prominen t collecting system on the right borderline hydronephrosis . Harish Maza MD on July 13, 2017 at 3:20 Board Certified Radiologist. This report was verified electronically.
[2017-07-13] MEDS ORDERED: CEPH-460 PO (03:27)
[2017-07-13] MEDS ORDERED: cefTRIAXone INJ 1,000 MG in SODIUM CHLORIDE 0.9% INJ 100 ML IV ONE (03:30)
[2017-07-13] MEDS ORDERED: ACETAMINOPHEN 325 MG TAB PO ONE (04:00)
== END 2017-07-13 04:54 | disposition home or self-care (01) ==
LOC: NEPC 22:45
DX: N39.0 Urinary tract infection, site not specified (principal); B96.20 Unspecified Escherichia coli [E. coli] as the cause of diseases classified elsewhere; R56.9 Unspecified convulsions; F17.210 Nicotine dependence, cigarettes, uncomplicated; F12.90 Cannabis use, unspecified, uncomplicated; Z87.442 Personal history of urinary calculi
CPT/HCPCS: 76775; 80053; 81001; 85025; 85652; 86140; 87077; 87086; 87186; 96365; 96375; 99284; J0696; J1885